=== PATIENT | female | born 1940 | race Caucasian/White ===

== ENCOUNTER 2017-01-04 12:52 | Inpatient (IN) | payer MEDICARE, OTHER ==
[2017-01-04] MEDS ORDERED: Levalbuterol 1.25 MG/3 ML Inhal Soln UD IH STA ×2 (13:34)
[2017-01-04] MEDS ORDERED: guaiFENesin 200 mg/10 ml Syrup UD PO STA (13:34)
[2017-01-04] MEDS ORDERED: Ipratropium 0.02% Inhal Soln (0.5 mg/2.5 ml) UD IH STA ×2 (13:34)
--- NOTE | 2017-01-04 14:27 | ED PDOC ---
Arrival/HPI - General Chief Complaint: Cough, Cold, Congestion Time Seen by Provider: 01/04/17 13:27 Historian: Patient - History of Present Illness Narrative History of Present Illness (Text): 01/04/17 13:30 A 76 year old female, whose past medial history includes hypertension, high cholesterol and COPD, presents to the emergency department complaining of a sore throat, ear pain that developed about 2 weeks ago. But now she also has a runny nose, cough, wheezing, and worsening shortness of breath upon walking or lying down. Patient denies any abdominal pain, headache, fevers or any other complaints at this time. PMD: Dr. Chris Time/Duration: Other (2 weeks) Symptom Onset: Sudden Symptom Course: Unchanged Activities at Onset: Rest Modifying Factors (Text): none Context: Home Associated Symptoms (Text): runny nose, cough, shortness of breath Past Medical History - Provider Review Nursing Documentation Reviewed: Yes - Infectious Disease Hx of Infectious Diseases: None - Reproductive Menopause: Yes - Cardiac Hx Hypertension: Yes - Pulmonary Hx Respiratory Disorders: No Hx Chronic Obstructive Pulmonary Disease (COPD): Yes - Psychiatric Hx Substance Use: No - Surgical History Hx Appendectomy: Yes - Anesthesia Hx Anesthesia: Yes Hx Anesthesia Reactions: No Hx Malignant Hyperthermia: No Family/Social History - Physician Review Nursing Documentation Reviewed: Yes Family/Social History: No Known Family HX Smoking Status: Former Smoker Hx Alcohol Use: No Hx Substance Use: No Allergies/Home Meds Allergies/Adverse Reactions: Allergies pen Allergy (Uncoded 01/04/17 13:09) SWELLING Home Medications: Home Meds Medication Instructions Recorded Confirmed Ipratropium/Albuterol Sulfate 1 spry IN TID PRN 08/05/15 01/04/17 [Combivent Respimat] hydroCHLOROthiazide [Hydrodiuril] 25 mg PO DAILY 08/05/15 01/04/17 Neomycin Sulf/Polymyxin B Sulf 1 drop DAILY 01/04/17 01/04/17 [Neomy-Polymyxin B 40 mg/ml Vl] Pravastatin Sodium [Pravachol] 20 mg PO DAILY 01/04/17 01/04/17 Promethazine [Phenergan Oral Syrup] 1 tsp PO Q8 01/04/17 01/04/17 Umeclidinium Haskell [Incruse 1 in PO DAILY 01/04/17 01/04/17 Ellipta] Review of Systems - Physician Review All systems were reviewed & negative as marked: Yes - Review of Systems ENT: Sore Throat, Other (ear pain) Respiratory: SOB, Cough Gastrointestinal: absent: Abdominal Pain Neurological: absent: Headache Physical Exam Vital Signs Reviewed: Yes Vital Signs Temp Pulse Resp BP Pulse Ox 01/04/17 16:54 100 H 20 142/98 H 95 01/04/17 13:05 98.3 F 99 H 20 121/76 94 L Temperature: Afebrile Blood Pressure: Normal Pulse: Regular Respiratory Rate: Normal Appearance: Positive for: Well-Appearing, Non-Toxic, Comfortable Pain Distress: None Mental Status: Positive for: Alert and Oriented X 3 - Systems Exam Head: Present: Atraumatic, Normocephalic Pupils: Present: PERRL Conjunctiva: Present: Normal Mouth: Present: Moist Mucous Membranes Pharnyx: Present: Normal. No: ERYTHEMA, EXUDATE Neck: Present: Normal Range of Motion Respiratory/Chest: Present: Wheezes (mild), Decreased Breath Sounds Cardiovascular: Present: Regular Rate and Rhythm, Normal S1, S2. No: Murmurs Abdomen: Present: Normal Bowel Sounds. No: Tenderness, Distention, Peritoneal Signs Back: Present: Normal Inspection Upper Extremity: Present: Normal Inspection. No: Cyanosis, Edema Lower Extremity: Present: Normal Inspection. No: Edema Neurological: Present: GCS=15, CN II-XII Intact, Speech Normal Skin: Present: Warm, Dry, Normal Color. No: Rashes Psychiatric: Present: Alert, Oriented x 3, Normal Insight, Normal Concentration Medical Decision Making ED Course and Treatment: 01/04/17 14:29 Impression: 76 yo. female with a history of COPD with URI symptoms and now COPD exacerbation. Tachypnea with wheezing and decreased BS on exam.Pat Differential Diagnosis included but are not limited to: COPD exacerbation vs pneumonia Plan: -- EKG -- chest xray -- Urinalysis -- Labs -- Reassess and disposition Prior Visits: Notes and results from previous visits were reviewed. Patient was reported to emergency department on 08/05/15 complaining of cough and throat pain. Patient was advised to follow up with PMD and appraiser [facility]. Patient was discharged with Levaquin and Tessalon. Progress Notes: EKG: Ordered, reviewed, and independently interpreted the EKG. Rate : 95 BPM Rhythm : NSR Interpretation : QTC 482, normal axis, no ST elevation, nonspecific ST/T changes Comparison : No previous EKG for comparison. 01/04/17 17:55 Patient given steroids and nebs in the ED with mild improvement; she continues to remain tachypneic in the ED; will need additional treatment end evaluation. CTA also showing no PE but mediastinal adenopathy that will need further eval. Case discussed with Dr. Ramírez, covering on-call physician, Dr. Posada for further evaluation and treatment on his service. - Lab Interpretations Lab Results: 01/04/17 14:18 01/04/17 14:18 Lab Results 01/04/17 15:30: Urine Color Yellow, Urine Appearance Clear, Urine pH 7.0, Ur Specific Alexander <= 1.005, Urine Protein Negative, Urine Glucose (UA) Negative, Urine Ketones Negative, Urine Blood Trace-intact H, Urine Nitrate Negative, Urine Bilirubin Negative, Urine Urobilinogen 0.2, Ur Leukocyte Esterase Trace H , Urine RBC 0 - 2, Urine WBC 0 - 2 01/04/17 14:18: Sodium 136, Potassium 2.7 L* D, Chloride 97 L, Carbon Dioxide 29 , Anion Gap 13, BUN 9, Creatinine 0.8, Est GFR ( Amer) > 60, Est GFR (Non -Af Amer) > 60, Random Glucose 113 H, Calcium 9.6, Magnesium 2.0, Total Bilirubin 0.5, AST 32, ALT 22, Alkaline Phosphatase 61, Lactate Dehydrogenase 460, Total Creatine Kinase 149, Troponin I < 0.01, NT-Pro-B Natriuret Pep 42.8, Total Protein 8.4 H, Albumin 3.8, Globulin 4.6, Albumin/Globulin Ratio 0.8 L, Lipase 41 01/04/17 14:18: PT 11.4, INR 1.06, APTT 28.2, D-Dimer, Quantitative 0.70 H 01/04/17 14:18: WBC 8.1 D, RBC 4.91, Hgb 15.4, Hct 42.9, MCV 87.4, MCH 31.4, MCHC 35.9, RDW 13.1, Plt Count 226, MPV 9.0, Gran % 41.1 L, Lymph % (Auto) 41.1 H, [place] % (Auto) 9.7 H, Eos % (Auto) 7.5 H, Baso % (Auto) 0.6, Gran # 3.32, Lymph # 3.3, [place] # 0.8 H, Eos # 0.6, Baso # 0.05 I have reviewed the lab results: Yes - RAD Interpretation Radiology Orders: 01/04/17 13:33 CHEST PORTABLE [RAD] Stat 01/04/17 14:55 ANGIO CHEST PE PROTOCOL [CT] Stat - EKG Interpretation Interpreted by ED Physician: Yes Type: 12 lead EKG - Medication Orders Current Medication Orders: Discontinued Medications Guaifenesin (Robitussin) 400 mg PO ONCE STA Stop: 01/04/17 13:35 Last Admin: 01/04/17 14:33 Dose: 400 mg Potassium Chloride (Potassium Chloride 10 Meq/100 Ml) 10 meq in 100 mls @ 100 mls/hr IVPB Q2H STA Stop: 01/04/17 15:53 Last Admin: 01/04/17 15:47 Dose: 100 mls/hr Iohexol (Omnipaque 350 100 Ml) Confirm Administered Dose 350 mg .ROUTE .STK-MED ONE Stop: 01/04/17 16:23 Ipratropium Haskell (Atrovent) 0.5 mg IH STAT STA Stop: 01/04/17 13:35 Last Admin: 01/04/17 14:33 Dose: 0.5 mg Ipratropium [place] (Atrovent) 0.5 mg IH STAT STA Stop: 01/04/17 13:35 Last Admin: 01/04/17 14:33 Dose: 0.5 mg Levalbuterol HCl (Xopenex) 1.25 mg IH STAT STA Stop: 01/04/17 13:35 Last Admin: 01/04/17 14:34 Dose: 1.25 mg Levalbuterol HCl (Xopenex) 1.25 mg IH STAT STA Stop: 01/04/17 13:35 Last Admin: 01/04/17 14:34 Dose: 1.25 mg Methylprednisolone (Solu-Medrol) 125 mg IVP STAT STA Stop: 01/04/17 13:34 Last Admin: 01/04/17 14:33 Dose: 125 mg Potassium Chloride (K-Dur 20 Meq Er Tab) 40 meq PO STAT STA Stop: 01/04/17 14:55 Last Admin: 01/04/17 15:46 Dose: 40 meq - Scribe Statement The provider has reviewed the documentation as recorded by the Vyibronda Cowan All medical record entries made by the Gokul were at my direction and personally dictated by me. I have reviewed the chart and agree that the record accurately reflects my personal performance of the history, physical exam, medical decision making, and the department course for this patient. I have also personally directed, reviewed, and agree with the discharge instructions and disposition. Disposition/Present on Arrival - Present on Arrival Any Indicators Present on Arrival: No History of DVT/PE: No History of Uncontrolled Diabetes: No Urinary Catheter: No History of Decub. Ulcer: No History Surgical Site Infection Following: None - Disposition Have Diagnosis and Disposition been Completed?: Yes Diagnosis: COPD exacerbation, Mediastinal adenopathy Disposition: HOSPITALIZED Disposition Time: 17:45 Patient Plan: Observation Condition: FAIR
[2017-01-04 14:35] LABS: ADD MANUAL DIFF? NO
[2017-01-04 14:45] LABS: BASO # 0.05 K/mm3 (0.0-2.0); BASO % 0.6 % (0.0-3.0); EOS # 0.6 (0.0-0.7); EOS % 7.5 % (1.5-5.0); GRAN # 3.32 (1.4-6.5); GRAN % 41.1 % (50.0-68.0); HEMATOCRIT 42.9 % (36.0-48.0); LYMPH # 3.3 (1.2-3.4); LYMPH % 41.1 % (22.0-35.0); MEAN CELL VOLUME 87.4 fL (80.0-105.0); MEAN CORPUSCULAR HEMOGLOBIN 31.4 pg (25.0-35.0); MEAN CORPUSCULAR HGB CONC 35.9 g/dl (31.0-37.0); MONO # 0.8 (0.1-0.6); MONO % 9.7 % (1.0-6.0); PLATELET COUNT 226 10^3/uL (120.0-450.0); RED CELL DISTRIBUTION WIDTH 13.1 % (11.5-14.5); WHITE BLOOD COUNT 8.1 10^3/ul (4.5-11.0)
[2017-01-04 14:49] LABS: ALB/GLOB RATIO 0.8 (1.1-1.8); ALKALINE PHOSPHATASE 61 U/L (38-133); ALT/SGPT 22 U/L (7-56); AST/SGOT 32 U/L (15-39); BILIRUBIN,TOTAL 0.5 mg/dL (0.2-1.3); BLOOD UREA NITROGEN 9 mg/dL (7-21); CALCIUM 9.6 mg/dL (8.4-10.5); CARBON DIOXIDE 29 mmol/L (21-33); CHLORIDE 97 mmol/L (98-107); GFR AFRICAN-AMERICAN > 60; GLUCOSE,RANDOM 113 mg/dL (70-110); LIPASE 41 U/L (23-300); SODIUM 136 mmol/L (132-148); TOTAL PROTEIN 8.4 g/dL (5.8-8.3)
[2017-01-04 14:51] LABS: POTASSIUM 2.7 mmol/L (3.6-5.0)
[2017-01-04 14:53] LABS: INR 1.06 (0.93-1.08); PARTIAL THROMBOPLASTIN TIME 28.2 Seconds (23.7-30.8)
[2017-01-04 14:54] LABS: D DIMER 0.7 mg/L FEU (0-0.50)
[2017-01-04] MEDS ORDERED: Potassium Chloride 20 mEq ER Tab PO STA (14:54)
[2017-01-04 15:02] LABS: TROPONIN I < 0.01 ng/mL
--- NOTE | 2017-01-04 15:17 | CARD ---
APPROVED REPORT EKG Measurement Heart [id number] <Conclusion> Normal sinus rhythm Right atrial enlargement Nonspecific ST and T wave abnormality Prolonged QT Abnormal ECG
[2017-01-04 16:00] LABS: URINE BILIRUBIN NEGATIVE (NEGATIVE); URINE BLOOD TRACE-INTACT (NEGATIVE); URINE GLUCOSE (UA) NEGATIVE (NEGATIVE); URINE KETONE NEGATIVE (NEGATIVE); URINE LEUKOCYTE ESTERASE TRACE Leu/uL (NEGATIVE); URINE PROTEIN NEGATIVE mg/dL (<30 mg/dL); URINE UROBILINOGEN 0.2 E.U./dL (<1 E.U./dL)
[2017-01-04 16:02] LABS: URINE APPEARANCE CLEAR (CLEAR); URINE COLOR YELLOW (YELLOW)
[2017-01-04 16:14] LABS: URINE RBC 0 - 2 /hpf (0-2); URINE WBC 0 - 2 /hpf (0-6)
[2017-01-04] MEDS ORDERED: Iohexol 350 MG/100 ML VIAL ONE (16:22)
--- NOTE | 2017-01-04 17:30 | CT ---
PROCEDURE: CT Chest with contrast (Pulmonary Angiogram) HISTORY: sob; r/o PE COMPARISON: None available. TECHNIQUE: Axial computed tomography images were obtained of the chest in the pulmonary arterial phase of enhancement. Coronal and sagittal reformatted images were created and reviewed. Intravenous contrast dose: 100 cc Omnipaque 350 contrast material. [place] Radiation dose: Total exam DLP = 169.29 mGy-cm. This CT exam was performed using one or more of the following dose reduction techniques: Automated exposure control, adjustment of the mA and/or kV according to patient size, and/or use of iterative reconstruction technique. FINDINGS: PULMONARY ARTERIES: No pulmonary embolism. Pulmonary trunk measures approximately 3.06 cm. Rule out underlying mild pulmonary arterial hypertension. AORTA: No evidence of aneurysmal dilatation of the thoracic aorta. Ascending thoracic aorta measures approximately 32.8 cm and descending thoracic aorta measures approximately 2.36 cm. Atherosclerotic plaque changes seen along the descending thoracic aorta. . LUNGS: Centrilobular emphysematous changes on heart is seen with upper lobe predominance with coarsened reticular opacities. . There also appears to be somewhat coarsened reticular opacities in the lower lung augustine suggesting honeycombing/ fibrosis. No focal consolidation. PLEURAL SPACES: Unremarkable. No effusion or pneuomothorax. HEART: Unremarkable. No cardiomegaly. No significant pericardial effusion. LYMPH NODES: Enlarged mediastinal lymph nodes are present, largest in the sub carinal region measuring approximately 17.1 mm and 11.3 mm. Small 12.2 mm left hilar lymph node is present. .. Note that it is unclear whether adenopathy from the sub carinal region extends posteriorly and inferiorly abutting the esophagus versus the possibility of esophageal wall thickening an underlying esophageal invasive lesion such as esophageal carcinoma. Consider followup and esophageal endoscopy. BONES, CHEST WALL: Bony structures intact. Mild multilevel degenerative spondylosis of the thoracic spine with mild to moderate dextroscoliosis mid to lower thoracic region. OTHER FINDINGS: There is enlarged somewhat heterogeneous thyroid gland right lobe larger than left. . Small calcifications also present right lobe. IMPRESSION: No evidence of acute central pulmonary embolus. Prominent pulmonary trunk ; rule out underlying mild pulmonary arterial hypertension. . There is also a prominent IVC Mediastinal adenopathy as above. Note that it is unclear whether adenopathy from the sub carinal region extends posteriorly and inferiorly abutting the esophagus versus the possibility of esophageal wall thickening an underlying esophageal invasive lesion such as esophageal carcinoma. Consider followup and esophageal endoscopy. Centrilobular emphysematous changes with what appears represent early honeycombing/fibrosis. No focal consolidation. Enlarged somewhat heterogeneous thyroid gland with thyroid calcifications right lobe. Thyroid ultrasound followup recommended. Atherosclerotic changes predominately involving the descending thoracic aorta of the
--- NOTE | 2017-01-04 17:37 | RAD ---
HISTORY: sob COMPARISON: Chest radiograph dated 06/22. Correlation also made with CTA chest obtained at 1627 hours FINDINGS: LUNGS: Centrilobular emphysema with upper lobe predominance. . Mild biapical pleural thickening . Interstitial reticular changes in the lower lobes consistent with early honeycombing/fibrosis PLEURA: As above. No pneumothorax apparent. CARDIOVASCULAR: Normal. OSSEOUS STRUCTURES: No significant abnormalities. VISUALIZED UPPER ABDOMEN: Normal. OTHER FINDINGS: None. IMPRESSION: Centrilobular emphysema with upper lobe predominance. . Mild biapical pleural thickening . Interstitial reticular changes in the lower lobes consistent with early honeycombing/fibrosis
[2017-01-05] MEDS: guaiFENesin 200 mg/10 ml Syrup UD PO SCH ×5 (00:13→23:27)
[2017-01-05] MEDS: Promethazine 6.25 MG/5 ML CUP PO SCH ×4 (00:19→21:56)
[2017-01-05] MEDS: Albuterol-Ipratrop 3 mg / 0.5 (3 ml) UD IH PRN (08:10)
[2017-01-05 12:51] VITALS: BMI 21.9
[2017-01-05 14:18] LABS: ADD MANUAL DIFF? NO
[2017-01-05 14:24] LABS: BASO # 0.03 K/mm3 (0.0-2.0); BASO % 0.2 % (0.0-3.0); EOS % 0.1 % (1.5-5.0); GRAN # 12.62 (1.4-6.5); HEMATOCRIT 40.1 % (36.0-48.0); LYMPH % 18.1 % (22.0-35.0); MEAN CELL VOLUME 88.7 fL (80.0-105.0); MEAN CORPUSCULAR HEMOGLOBIN 31.4 pg (25.0-35.0); MEAN CORPUSCULAR HGB CONC 35.4 g/dl (31.0-37.0); MEAN PLATELET VOLUME 9.2 fl (7.0-11.0); MONO # 0.9 (0.1-0.6); MONO % 5.6 % (1.0-6.0); PLATELET COUNT 241 10^3/uL (120.0-450.0); RED CELL DISTRIBUTION WIDTH 13.3 % (11.5-14.5); WHITE BLOOD COUNT 16.6 10^3/ul (4.5-11.0)
[2017-01-05] MEDS: MethylPREDNISolone 40 mg Vial IVP SCH ×2 (14:34→21:49)
[2017-01-05 14:44] LABS: ALB/GLOB RATIO 0.9 (1.1-1.8); ALKALINE PHOSPHATASE 60 U/L (38-133); ALT/SGPT 23 U/L (7-56); AST/SGOT 29 U/L (15-39); BILIRUBIN,TOTAL 0.5 mg/dL (0.2-1.3); BLOOD UREA NITROGEN 11 mg/dL (7-21); CALCIUM 9.4 mg/dL (8.4-10.5); CARBON DIOXIDE 29 mmol/L (21-33); CHLORIDE 102 mmol/L (98-107); GFR AFRICAN-AMERICAN > 60; GLUCOSE,RANDOM 149 mg/dL (70-110); POTASSIUM 3.1 mmol/L (3.6-5.0); SODIUM 139 mmol/L (132-148)
[2017-01-06] MEDS: MethylPREDNISolone 40 mg Vial IVP SCH ×3 (05:23→21:13)
[2017-01-06] MEDS: Promethazine 6.25 MG/5 ML CUP PO SCH ×3 (05:23→21:13)
[2017-01-06] MEDS: Albuterol-Ipratrop 3 mg / 0.5 (3 ml) UD IH PRN ×2 (06:00→08:20)
[2017-01-06] MEDS ORDERED: Albuterol-Ipratrop 3 mg / 0.5 (3 ml) UD IH PRN (06:28)
[2017-01-06 06:32] LABS: ADD MANUAL DIFF? NO
[2017-01-06 06:44] LABS: MEAN CELL VOLUME 88.8 fL (80.0-105.0); MEAN CORPUSCULAR HEMOGLOBIN 31.1 pg (25.0-35.0); MEAN PLATELET VOLUME 9.1 fl (7.0-11.0); RED CELL DISTRIBUTION WIDTH 13.6 % (11.5-14.5); WHITE BLOOD COUNT 9.7 10^3/ul (4.5-11.0)
[2017-01-06 07:10] LABS: ALB/GLOB RATIO 0.9 (1.1-1.8); ALKALINE PHOSPHATASE 55 U/L (38-133); ALT/SGPT 29 U/L (7-56); AST/SGOT 27 U/L (15-39); BILIRUBIN,TOTAL 0.3 mg/dL (0.2-1.3); BLOOD UREA NITROGEN 15 mg/dL (7-21); CALCIUM 8.3 mg/dL (8.4-10.5); CARBON DIOXIDE 24 mmol/L (21-33); CHLORIDE 106 mmol/L (95-110); GFR AFRICAN-AMERICAN > 60; GLUCOSE,RANDOM 165 mg/dL (70-110); POTASSIUM 3.7 mmol/L (3.6-5.0); SODIUM 137 mmol/L (132-148); TOTAL PROTEIN 7.2 g/dL (5.8-8.3)
[2017-01-06 07:13] LABS: BASO # 0.01 K/mm3 (0.0-2.0); BASO % 0.1 % (0.0-3.0); GRAN % 84.3 % (50.0-68.0); HEMATOCRIT 38.7 % (36.0-48.0); LYMPH # 1.4 (1.2-3.4); LYMPH % 13.9 % (22.0-35.0); MEAN CORPUSCULAR HEMOGLOBIN 30.3 pg (25.0-35.0); MEAN CORPUSCULAR HGB CONC 34.1 g/dl (31.0-37.0); MEAN PLATELET VOLUME 9.1 fl (7.0-11.0); MONO # 0.2 (0.1-0.6); MONO % 1.7 % (1.0-6.0); PLATELET COUNT 232 10^3/uL (120.0-450.0); RED CELL DISTRIBUTION WIDTH 13.5 % (11.5-14.5); WHITE BLOOD COUNT 10.3 10^3/ul (4.5-11.0)
--- NOTE | 2017-01-06 07:29 | CON ---
DATE: 01/06/2017 REASON FOR CONSULTATION: Chronic obstructive pulmonary disease. REFERRING PHYSICIAN: Dr. Ramírez. HISTORY OF PRESENT ILLNESS: The patient is a 76-year-old female with past medical history significant for chronic obstructive pulmonary disease, positive extensive smoking history -- still smokes, hypertension, hyperlipidemia, who presents to [facility] with worsening shortness of breath at rest, dyspnea on exertion, cough, and minimal sputum production for the past week. There is no history of chest pain, coughing up of blood, or chest pain -- made worse with deep respirations. There is no history of temperatures, chills or infectious exposure. There is no history of night sweats, weight loss or appetite change prior to the above events. No history of leg or calf pains. No history of syncope or diaphoresis. No history of recent travel or trauma. REVIEW OF SYSTEMS: The patient does complain of a runny,stuffy nose over the past week. She also states that her ears are "clogged." No nausea, vomiting or diarrhea. No acute urinary symptoms. No new neurological or musculoskeletal complaints. Rest of review of systems is negative. ALLERGIES: PENICILLIN. SOCIAL HISTORY: Positive for extensive tobacco usage -- still smokes, no alcohol. FAMILY HISTORY: No inheritable diseases. HOME MEDICATIONS: Include Pravachol, Phenergan, Incruse, Combivent hydrochlorothiazide. PHYSICAL EXAMINATION: GENERAL: She is not short of breath at rest. She is not using accessory muscles for breathing. VITAL SIGNS: Temperature is 98.0, pulse 86, respirations 18/20, blood pressure 123/74. Oxygen saturation on nasal cannula is 96-100%. HEENT: Normocephalic, atraumatic. NECK: No JVD. CARDIOVASCULAR: Systolic ejection murmur at the lower left sternal border. No S3 gallop. LUNGS: Decreased breath sounds at the bases. Minimal rhonchi. Minimal wheezing. EXTREMITIES: Mild edema. No cyanosis, no clubbing. Calves are nontender to palpation. GASTROINTESTINAL: Abdomen is soft, nontender, nondistended. Bowel sounds are positive. SKIN: No acute rash. NEUROLOGIC: Limited at the present time. PERTINENT LABORATORY DATA: Chest x-ray was done and reviewed. There is centrilobular emphysema seen. There is also a mild increase in the interstitial changes. These changes are NOT new and have been seen on multiple previous x-rays. CT scan of the chest was also done. Again, centrilobular emphysema is noted. There also appears to be some chronic mild interstitial changes. There are also mildly enlarged mediastinal and hilar lymph nodes present. There is no evidence of pulmonary mass or consolidation. There is no pulmonary embolism. CBC: White count 16.6, hemoglobin 14.2, hematocrit 40.1, platelets of 241. Initial white count -- 8.1. Complete metabolic profile: Potassium 3.1, glucose 149. Rest of the metabolic profile is within normal limits. IMPRESSION: 1. Acute bronchitis. 2. Chronic obstructive pulmonary disease. 3. Abnormal CT scan. 4. Hypertension. PLAN: The patient presents to [facility] with a 1-week history of worsening pulmonary symptoms. I did review the chest x-ray as above. There are chronic changes noted. I did compare the latest film to previous films. I have also reviewed the CT scan of the chest. There is no pulmonary embolism seen. There, again, are chronic mild interstitial changes present. There is no evidence of mass or acute consolidation. There are mildly enlarged lymph nodes in the hilar and mediastinal regions--AGE UNDETERMINED. I did discuss the CT scan findings with the patient at length. The patient is followed closely by a survey technologist -- Dr. Osborne -- in [place]. Upon discharge, I would recommend proceeding with a PET scan -- as an outpatient. On physical exam, the patient is in mild to moderate bronchospasm. I will decrease the intravenous steroids this morning. I will also place the patient on scheduled nebulizer treatments, as well as add oral antibiotic therapy (given her age and diagnoses). The patient does feel better this morning -- compared to previous days. She is clinically improved. I will discuss the above with Dr. Posada this morning. Thank you very much for this pulmonary consultation. Shailesh Calles MD cc: [id number] TT: 01/06/2017 07:29:13 Confirmation # [id number] Dictation # [id number] jn LENA
[2017-01-06] MEDS: Albuterol-Ipratrop 3 mg / 0.5 (3 ml) UD IH SCH ×3 (08:20→20:04)
[2017-01-06] MEDS: Budesonide 0.5 mg/2 ml Inhal Susp UD IH SCH ×2 (08:31→20:04)
--- NOTE | 2017-01-06 08:35 | HP ---
The patient is a 76-year-old female with a known past medical history of hypertension and hypercholes terolemia, as well as COPD who comes in today with a 2-week history of increased shortness of breath as well as cough, sore throat, and nausea and vomiting, but no shortness of breath, no chest pain, wi th mild wheezing. PAST MEDICAL HISTORY: Includes COPD, hypertension, elevated lipids. SURGICAL HISTORY: Non-significant at this point. FAMILY MEDICAL HISTORY: Noncontributory. SOCIAL HISTORY: No smoking, no drinking, no drug use. MEDICAL HISTORY: See NOV. REVIEW OF SYSTEMS: HEENT: Positive for cough. Positive for sore throat. CARDIOVASCULAR: Unremarkable. LUNGS: Positive for shortness of breath, as well as cough with mild sputum production. ABDOMEN: Unremarkable. EXTREMITIES: Unremarkable. VITAL SIGNS: Blood pressure is currently 122/78, pulse rate of 104. Temperature is 99.8. O2 satura tion is 95 on room air. HEENT: Normocephalic, atraumatic. [place] conjunctivae, nonicteric sclerae. NECK: No JVD, no thyromegaly. CARDIOVASCULAR: Regular rate and rhythm. S1, S2 appreciated. No S3 noted. LUNGS: Bilateral air entry is positive. Positive scattered rhonchi diffusely with mild wheezing. ABDOMEN: Nondistended, nontender. Positive bowel sounds. EXTREMITIES: Peripheral pulse with no pitting edema. LABORATORY DATA: WBCs of 8.1, hemoglobin of 15.4, hematocrit of 42.9, platelets of 226. D-dimer is 0.7. Chemistry is within normal limits except for potassium of 2.7, which is currently being replace d at this point. She did have a CAT scan done. CAT scan was essentially negative for any acute central pulmonary embo lism or adenopathy. There is some emphysema that is seen. ASSESSMENT: 1. Chronic obstructive pulmonary disease exacerbation. 2. Hypertension. 3. Elevated lipids. 4. Hypokalemia. PLAN: So plan at this time - we will replace the potassium at this point. We will give her cough me dication, as well as Solu-Medrol, as well as breathing treatments, and we will follow the patient debra y closely. We will also get a consult with Dr. Calles and follow. Shorty Ramírez MD cc: [id number] TT: 01/05/2017 10:56:08 jn
--- NOTE | 2017-01-06 08:40 | CP.PCM.CON ---
<Otto Madrid - Last Filed: 01/06/17 11:57> History of Present Illness - History of Present Illness History of Present Illness: PGY4 GI Fellow Consult Note Patient is a 76yo female with PMHx significant for COPD, HTN, dyslipidemia who presents with complaints of dyspnea, sore throat and ear pain. Ten days prior to admission, patient developed chest congestion, cough and B/L ear pain. She was seen by her PCP who prescribed PO and otic gtt antibiotic therapy for presumed respiratory infection/otitis. The patient also used prescription cough suppressant medication (promethazine/DM) which helped improved symptoms modestly. As one week passed, she remained dyspneic on exertion which progressed to dyspnea at rest prompting her to come to the ED for further evaluation. A CTA chest performed in the ED to rule out PE was performed and revealed mediastinal adenopathy, irregularly enlarged thryoid gland and distal esophageal wall thickening. Since admission she has been treated for acute bronchitis with IV solumedrol, nebulizer therapy and IV antibiotics. Presently, she admits to improvement in overall symptoms. Does admit to occasional hemoptysis, SOB but otherwise denies any nausea, vomiting, dyspepsia, dysphagia , odynophagia, abdominal pain. PMHx: See HPI PSHx: Appendectomy FHx: Discussed with patient and she denies any significant family history Social: 1/2ppd smoker for 50+ years, denies EtOH or illicit drug use Endo: No prior endoscopic evaluation Review of Systems - Constitutional Constitutional: absent: Anorexia, Chills, Fever - EENT Eyes: absent: Change in Vision Ears: absent: Ear Pain Nose/Mouth/Throat: absent: Sore Throat - Cardiovascular Cardiovascular: absent: Chest Pain, Edema, Palpitations - Respiratory Respiratory: Cough, Dyspnea, Hemoptysis - Gastrointestinal Gastrointestinal: absent: Abdominal Pain, Bloating, Constipation, Cramping, Diarrhea, Dyspepsia, Dysphagia, Heartburn, Hematemesis, Hematochezia, Loose Stools, Melena, Nausea, Odynophagia, Vomiting - Genitourinary Genitourinary: absent: Dysuria, Urinary Frequency, Urinary Urgency - Musculoskeletal Musculoskeletal: absent: Back Pain, Neck Pain - Integumentary Integumentary: absent: New Lesions, Rash - Neurological Neurological: absent: Dizziness, Numbness, Focal Weakness - Psychiatric Psychiatric: absent: Anxiety, Depression - Endocrine Endocrine: absent: Polydipsia, Polyphagia, Polyuria - Hematologic/Lymphatic Hematologic: absent: Easy Bleeding, Easy Bruising, Lymphadenopathy Past Patient History - Infectious Disease Hx of Infectious Diseases: None - Past Social History Smoking Status: Never Smoked - CARDIAC Hx Hypertension: Yes - PULMONARY Hx Respiratory Disorders: No Hx Chronic Obstructive Pulmonary Disease (COPD): Yes - MUSCULOSKELETAL/RHEUMATOLOGICAL Hx Falls: No - PSYCHIATRIC Hx Substance Use: No - SURGICAL HISTORY Hx Appendectomy: Yes - ANESTHESIA Hx Anesthesia: Yes Hx Anesthesia Reactions: No Hx Malignant Hyperthermia: No Meds Allergies/Adverse Reactions: Allergies Allergy/AdvReac Type Severity Reaction Status Date / Time pen Allergy SWELLING Uncoded 01/04/17 13:09 - Medications Medications: Current Medications Albuterol/Ipratropium (Duoneb 3 Mg/0.5 Mg (3 Ml) Ud) 3 ml IH [id number] [facility] Last Admin: 01/06/17 08:20 Dose: 3 ml Albuterol/Ipratropium (Duoneb 3 Mg/0.5 Mg (3 Ml) Ud) 3 ml IH Q2H PRN PRN Reason: Shortness of Breath Budesonide (Pulmicort Respules) 0.5 mg IH [id number] [facility] Last Admin: 01/06/17 08:31 Dose: 0.5 mg Guaifenesin (Robitussin) 400 mg PO Q6 [facility] Last Admin: 01/05/17 23:27 Dose: 400 mg Hydralazine HCl (Apresoline) 25 mg PO TID [facility] Last Admin: 01/05/17 18:20 Dose: 25 mg Levofloxacin (Levaquin) 500 mg PO ONCE ONE Stop: 01/06/17 10:01 Levofloxacin (Levaquin) 250 mg PO Q24H [facility] Methylprednisolone (Solu-Medrol) 40 mg IVP Q12 [facility] Pantoprazole Sodium (Protonix Inj) 40 mg IVP DAILY [facility] Promethazine HCl (Phenergan Syrup) 6.25 mg PO Q8 [facility] Last Admin: 01/06/17 05:23 Dose: 6.25 mg Physical Exam - Constitutional Appears: Non-toxic, No Acute Distress - Eye Exam Eye Exam: EOMI, PERRL - ENT Exam ENT Exam: Mucous Membranes Moist - Respiratory Exam Respiratory Exam: Decreased Breath Sounds, Rales. absent: Clear to Auscultation Bilateral, Rhonchi, Wheezes - Cardiovascular Exam Cardiovascular Exam: RRR, +S1, +S2 - GI/Abdominal Exam GI & Abdominal Exam: Normal Bowel Sounds, Soft. absent: Distended, Firm, Guarding, Organomegaly, Rigid, Tenderness - Extremities Exam Extremities exam: Positive for: normal inspection. Negative for: pedal edema - Neurological Exam Neurological exam: Alert, Oriented x3 - Psychiatric Exam Psychiatric exam: Normal Affect, Normal Mood - Skin Skin Exam: Dry, Warm Results - Vital Signs Recent Vital Signs: Last Vital Signs Temp 97.8 F 01/06/17 06:00 Pulse 90 01/06/17 08:33 Resp 20 01/06/17 06:00 BP 139/97 H 01/06/17 06:00 Pulse Ox 100 01/06/17 06:00 - Labs Result Diagrams: 01/06/17 06:00 01/06/17 06:00 Assessment & Plan - Assessment and Plan (Free Text) Assessment: Patient is a 76yo female with PMHx significant for COPD, HTN, dyslipidemia who presents with complaints of dyspnea, sore throat and ear pain. -Acute COPD exacerbation, improved -Acute bronchitis, improved -URI with B/L otitis, resolving -Abnormal CT chest findings - thyroid enlargement, esophageal abnormality and mediastinal adenopathy -HTN -Dyslipidemia Plan: -Tolerating diet without issue, no hx of dysphagia/dyspepsia -Optimize patient from pulmonary standpoint prior to endoscopic interventions -Would benefit from EGD possibly with EUS to further evaluation distal esophageal lesion/mediastinal adenopathy noted on CT; must rule out malignancy given extensive smoking history -Endoscopy tentatively planned for Friday -Appreciate pulmonology and endocrinology consultations -Patient has never had screening colonoscopy - would benefit from non-emergent outpatient screening on follow up - Date & Time Date: 01/06/17 Time: 08:00 <Kunal Moody - Last Filed: 01/06/17 13:35> Meds - Medications Medications: Current Medications Albuterol/Ipratropium (Duoneb 3 Mg/0.5 Mg (3 Ml) Ud) 3 ml IH [id number] [facility] Last Admin: 01/06/17 13:17 Dose: 3 ml Albuterol/Ipratropium (Duoneb 3 Mg/0.5 Mg (3 Ml) Ud) 3 ml IH Q2H PRN PRN Reason: Shortness of Breath Budesonide (Pulmicort Respules) 0.5 mg IH [id number] [facility] Last Admin: 01/06/17 08:31 Dose: 0.5 mg Guaifenesin (Robitussin) 400 mg PO Q6 [facility] Last Admin: 01/06/17 11:02 Dose: 400 mg Hydralazine HCl (Apresoline) 25 mg PO TID [facility] Last Admin: 01/06/17 09:19 Dose: 25 mg Levofloxacin (Levaquin) 250 mg PO Q24H [facility] Methylprednisolone (Solu-Medrol) 40 mg IVP Q12 [facility] Last Admin: 01/06/17 09:21 Dose: 40 mg Metoprolol Tartrate (Lopressor) 12.5 mg PO BID [facility] Last Admin: 01/06/17 11:02 Dose: 12.5 mg Pantoprazole Sodium (Protonix Inj) 40 mg IVP DAILY [facility] Last Admin: 01/06/17 09:21 Dose: 40 mg Promethazine HCl (Phenergan Syrup) 6.25 mg PO Q8 [facility] Last Admin: 01/06/17 05:23 Dose: 6.25 mg Results - Vital Signs Recent Vital Signs: Last Vital Signs Temp 97.8 F 01/06/17 06:00 Pulse 120 H 01/06/17 11:03 Resp 20 01/06/17 06:00 BP 166/82 H 01/06/17 11:03 Pulse Ox 100 01/06/17 06:00 - Labs Result Diagrams: 01/06/17 06:00 01/06/17 06:00 Labs: Laboratory Results - last 24 hr 01/05/17 01/05/17 01/06/17 14:17 14:17 06:00 WBC 16.6 H D 9.7 D RBC 4.52 4.28 Hgb 14.2 13.3 Hct 40.1 38.0 MCV 88.7 88.8 MCH 31.4 31.1 MCHC 35.4 35.0 RDW 13.3 13.6 Plt Count 241 232 MPV 9.2 9.1 Gran % 76.0 H Lymph % (Auto) 18.1 L Bullock % (Auto) 5.6 Eos % (Auto) 0.1 L Baso % (Auto) 0.2 Gran # 12.62 H Lymph # 3.0 Bullock # 0.9 H Eos # 0.0 Baso # 0.03 Sodium 139 Potassium 3.1 L Chloride 102 Carbon Dioxide 29 Anion Gap 11 BUN 11 Creatinine 0.8 Est GFR ( Amer) > 60 Est GFR (Non-Af Amer) > 60 Random Glucose 149 H Calcium 9.4 Total Bilirubin 0.5 AST 29 ALT 23 Alkaline Phosphatase 60 Total Protein 8.0 Albumin 3.7 Globulin 4.3 Albumin/Globulin Ratio 0.9 L 01/06/17 01/06/17 06:00 06:00 WBC 10.3 RBC 4.35 Hgb 13.2 Hct 38.7 MCV 89.0 MCH 30.3 MCHC 34.1 RDW 13.5 Plt Count 232 MPV 9.1 Gran % 84.3 H Lymph % (Auto) 13.9 L Bullock % (Auto) 1.7 Eos % (Auto) 0.0 L Baso % (Auto) 0.1 Gran # 8.70 H Lymph # 1.4 Bullock # 0.2 Eos # 0.0 Baso # 0.01 Sodium 137 Potassium 3.7 Chloride 106 Carbon Dioxide 24 Anion Gap 11 BUN 15 Creatinine 0.6 Est GFR ( Amer) > 60 Est GFR (Non-Af Amer) > 60 Random Glucose 165 H Calcium 8.3 L Total Bilirubin 0.3 AST 27 ALT 29 Alkaline Phosphatase 55 Total Protein 7.2 Albumin 3.3 Globulin 3.9 Albumin/Globulin Ratio 0.9 L Attending/Attestation - Attestation I have personally seen and examined this patient.: Yes I have fully participated in the care of the patient.: Yes I have reviewed all pertinent clinical information: Yes Notes (Text): 01/06/17 13:34 76 year old female with h/o emphysema, smoking a/w SOB, found to have abnormal CT of esophagus. 1. Abnormal CT scan of the GI tract, esophagus Plan: -asymptomatic -distal esophageal thickening along with mediastinal lymphadenopathy -recommend elective endoscopy -may be able to perform EUS to evaluate LN at the same time -tentatively plan for endoscopy friday -supportive care in the meantime -optimize respiratory status
--- NOTE | 2017-01-06 09:40 | HP ---
I came to see the patient this morning. She is still on observation. She was seen yesterday by Dr. Ramírez who covered me over the weekend . Pulmonary has seen her this a.m.. She is a 76-year-old female who developed about 2 weeks of sore throat, upper respiratory infections, ear pain, and was on outpatient antibiotics, failed outpatient antibiotics from her primary care, and now has got runny nose, cough , wheezing, worsening shortness of breath upon walking lying down. No abdominal pain, no headache or fever. Now she is here in the hospital getting IV Solu-Medrol. PAST MEDICAL HISTORY: She has history of hypertension, high cholesterol, COPD. This is a sudden change for her even being on antibiotics by her primary. She had a history of appendectomy. FAMILY HISTORY: She has Hypertension in the family. SOCIAL HISTORY: She is still a smoker at times. No alcohol, no drugs. ALLERGIES: PENICILLIN CAUSES AN ALLERGY. MEDICATIONS: She takes Combivent, HydroDIURIL, neomycin, polymyxin, Pravachol, Phenergan, Incruse. She has an ear ache, sore throat, runny nose, coughing, congestion, occasional wheeze, shortness of breath. No chest pain, no palpitations, no abdominal pain , no nausea, vomiting, constipation, or diarrhea. She can move all extremities. PHYSICAL EXAMINATION: VITAL SIGNS: She has a 98.3 temp. Pulse is 100. Respiratory rate is 20, 142/ 98 blood pressure, 95% O2 sat. HEENT: Head is atraumatic, normocephalic. GENERAL: She is alert and oriented x 3. She is on IV Solu-Medrol right now. So I am over the worst of her appearance when she came to the hospital when she was very short of breath. Throat is dry, mildly red. NECK: Supple. Extraocular muscles are intact. Pupils are equally reactive to light and accommodation. HEART: Regular rate. Normal S1, S2. LUNGS: Occasional wheeze improving. The decrease of shortness of breath is improving with the Solu-Medrol. She is breathing better, talking more. ABDOMEN: Soft, nontender, positive bowel sounds. No guarding, no rebound, no CVA tenderness. EXTREMITIES: Have no edema. NEUROLOGIC: GCS is 15. Cranial nerves II-XII are grossly intact. Speech is normal. SKIN: Warm and dry. Alert and oriented x 3. Normal insight. Normal concentration. LABORATORY DATA: She had multiple tests. She had a 16.6 white count, 13.2 hemoglobin, 38.7 hematocrit with 232 platelets. The white count is down to 10.3. INR is 1.06. The D-dimer was 0.7. She has a 137 sodium when she came in. The potassium was quite low. It was 2.7. She was given K-riders, and it was 3.1. It is up to 3.7 now. BUN is 15, creatinine 0.6. GFR is greater than 60. Sugar is . Calcium is 8.3. Total bili is 0.3. AST is 27. ALT is 29. Alk phos is 55, total protein 7.2, and urine is trace. She had a chest x-ray, which showed normal sinus rhythm, prolonged QT on the EKG , right atrial enlargement. 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 She had a CAT scan of the chest, which showed no evidence of acute central pulmonary embolus. There is mild pulmonary arterial hypertension. There is a prominent IVC, mediastinal adenopathy - could be esophageal invasive lesions such as esophageal carcinoma. I am going to consult GI. Enlarged thyroid gland with thyroid calcifications. I will consult endocrinology for evaluation. . She is being seen by pulmonary for her acute exacerbation of COPD, acute bronchitis. She is going to need to have a PET scan when she leaves the hospital. We will continue with IV Solu-Medrol, change her to an inpatient, which she should have been inpatient from the beginning. I am not sure what happened. Jose Posada DO cc: [id number] TT: 01/06/2017 09:39:26 jn MTDBill
[2017-01-06] MEDS ORDERED: levoFLOXacin 500 MG TAB PO ONE (10:00)
[2017-01-06] MEDS: guaiFENesin 200 mg/10 ml Syrup UD PO SCH ×3 (11:02→18:35)
--- NOTE | 2017-01-06 14:16 | CON ---
DATE: 01/06/2017 HISTORY OF PRESENT ILLNESS: The patient is a 76-year-old woman who presents with progressive dyspnea . PAST MEDICAL HISTORY: Notable for COPD. She has had multiple episodes of dyspnea in the past: Rito p in [facility] according to the patient, was negative for any significant cardiac di sease. She does suffer from hypertension and hypercholesterolemia. She denies chest pain. Negative diabetes mellitus. SOCIAL HISTORY: She is an active smoker. REVIEW OF SYSTEMS: A 14-point review of systems was reviewed. Positive dyspnea, positive cough, neg ative angina, negative edema in the lower extremities. PHYSICAL EXAMINATION: VITAL SIGNS: Blood pressure 124/71, heart rate is sinus tachycardia between 100 and 110. NECK: Negative JVD. LUNGS: No rales noted. HEART: Reveals S1, S2. EXTREMITIES: Without edema. EKG shows sinus tachycardia with no acute changes. LABORATORY DATA: Hemoglobin is 13.2. Troponin is negative x 1. The proBNP was 42. IMPRESSION: 1. Exacerbation of chronic obstructive pulmonary disease. 2. Sinus tachycardia secondary to the work of breathing. 3. No evidence for congestive heart failure. 4. No evidence for acute coronary syndrome. 5. Hypertension. 6. Hypercholesterolemia. Given these findings, we will obtain an echocardiogram to evaluate her LV function and to rule out pu lmonary hypertension. I have discussed with the patient about the need to stop smoking. Owen Morgan MD cc: [id number] TT: 01/06/2017 14:16:08 Confirmation # [id number] Dictation # [id number]
[2017-01-07] MEDS: guaiFENesin 200 mg/10 ml Syrup UD PO SCH ×4 (00:28→17:16)
[2017-01-07] MEDS: Albuterol-Ipratrop 3 mg / 0.5 (3 ml) UD IH SCH ×4 (02:40→19:24)
[2017-01-07] MEDS: Promethazine 6.25 MG/5 ML CUP PO SCH ×3 (06:36→21:33)
[2017-01-07 07:17] LABS: ALB/GLOB RATIO 0.8 (1.1-1.8); ALKALINE PHOSPHATASE 46 U/L (38-133); ALT/SGPT 24 U/L (7-56); AST/SGOT 22 U/L (15-39); BILIRUBIN,TOTAL 0.5 mg/dL (0.2-1.3); BLOOD UREA NITROGEN 17 mg/dL (7-21); CALCIUM 8.4 mg/dL (8.4-10.5); CARBON DIOXIDE 23 mmol/L (21-33); CHLORIDE 105 mmol/L (98-107); GFR AFRICAN-AMERICAN > 60; GLUCOSE,RANDOM 200 mg/dL (70-110); POTASSIUM 3.5 mmol/L (3.6-5.0); SODIUM 136 mmol/L (132-148)
[2017-01-07 07:29] LABS: T4 7.8 ug/dL (5.5-11.0)
[2017-01-07 07:42] LABS: THYROID STIMULATING HORMONE 0.13 mIU/mL (0.46-4.68)
--- NOTE | 2017-01-07 07:57 | PN ---
DATE: 01/07/2017 SUBJECTIVE: The patient appears very comfortable at rest. She is not short of breath. PHYSICAL EXAMINATION: VITAL SIGNS: Temperature is 98.0, pulse 90, respirations 18, blood pressure 128 /82. Oxygen saturation on nasal cannula is 100%. Oxygen saturation on room air -- 93%. HEENT: Normocephalic, atraumatic. No JVD. CARDIOVASCULAR: Systolic ejection murmur at the lower left sternal border. No S3 gallop. LUNGS: Decreased breath sounds at the bases. Less rhonchi. No wheezing this morning. EXTREMITIES: Mild edema. No cyanosis, no clubbing. Calves are nontender to palpation. GASTROINTESTINAL: Abdomen is soft, nontender, nondistended. Bowel sounds are positive. SKIN: No acute rash. NEUROLOGIC: Limited at the present time. IMPRESSION: 1. Acute bronchitis. 2. Chronic obstructive pulmonary disease. 3. Abnormal CAT scan. 4. Hypertension. PLAN: The patient appears very comfortable this morning. She is not short of breath at rest. She states to feeling much better overall. On physical exam, her bronchospasm is resolving. In addition, there is no significant alveolar arterial gradient. I will continue with the current nebulizer treatments and decrease the intravenous steroids this morning. The patient remains on antibiotic therapy. There are no temperatures noted. There is no leukocytosis. Again, I would recommend proceeding with a PET scan -- as an outpatient -- to evaluate the mild to moderate lymphadenopathy. I did discuss the case and plan with Dr. Posada yesterday. I will also discuss the case with him again this morning. Clinical status of the patient is certainly improved - compared to the initial presentation. Shailesh Calles MD cc: [id number] TT: 01/07/2017 07:56:51 Confirmation # [id number] Dictation # [id number] william PAREDES
[2017-01-07] MEDS: Budesonide 0.5 mg/2 ml Inhal Susp UD IH SCH ×2 (08:06→19:24)
--- NOTE | 2017-01-07 08:09 | CON ---
DATE: 01/06/2017 ROOM: ____ This is a 76-year-old female who is admitted with acute exacerbation of COPD and started on IV steroi d therapy and underwent a CAT scan of the chest procedure, which showed an incidental finding of an e nlarged thyroid, and is now being referred for endocrine evaluation and management. PAST MEDICAL HISTORY: As mentioned above, history of hypertension and dyslipidemia and also ____ [employer] ____ previous admissions for exacerbations of the same. FAMILY HISTORY: No known thyroid endocrinopathy, but positive for hypertension and heart disease. SOCIAL HISTORY: The patient ____ nicotine dependence for over 50 years. At this time, ____. REVIEW OF SYSTEMS: Admits to generalized body weakness with easy fatigability and tiredness and ____ energy level. Also admits to dizziness and lightheadedness worse on the day of admission. No chest pains or palpitations but admits to progressive shortness of breath, especially when ____ with persi stent bronchorrhea and____ congestion ____. Her oral intake has been variable with occasional dyspep jonathan but denies any recent ____. PHYSICAL EXAMINATION: GENERAL: ____ average built female in no apparent distress. VITAL SIGNS: Blood pressure ____, pulse of 90 beats per minute and regular, temperature 98, respirat ions 20. Height is 5 ____ and weight is ____ pounds. HEENT: Normocephalic. Eyes anicteric with ____ conjunctivae. Fundoscopy ____ at this time. ____. NECK: Supple. Thyroid gland ____ which is firm and nontender with no overt ____ nodules palpable __ __ nor any cervical adenopathy noted. HEART: Hyperdynamic precordium. S1, S2 ____ regular. LUNGS: Scattered rhonchi. ABDOMEN: Flat, soft with positive bowel sounds. EXTREMITIES: ____. Pulses ____ bilaterally. LABORATORY DATA: The initial chemistry showed a BUN of ____. ____ studies are normal. ASSESSMENT: This is a 76-year-old female with overt acute exacerbation of chronic obstructive pulmon francisco disease with an incidental finding of a multinodular goiter by CAT scan and also confirmed clinic ally with nodular thyromegaly but no overt ____ nodules ____ at this time. She is clinically euthyro id at this time. PLAN OF MANAGEMENT: Discussed with the patient and staff. We will obtain a comprehensive thyroid ho rmone profile with a total T4 and free T4 and TSH and also we will include the thyroid peroxidase and the thyroglobulin antibody which will confirm and/or negate the presence of underlying thyroid ____. We will obtain serial chemistries and supplement accordingly as needed. We will also obtain a thyr oid ultrasound which will confirm the actual dimension of the gland and also the nature of the ____ _ ___ subclinical nodules and/or ____. We will follow and advise accordingly. Tami Marmolejo MD cc: [id number] TT: 01/06/2017 16:27:06 Confirmation # [id number] Dictation # [id number]
--- NOTE | 2017-01-07 08:41 | PN ---
DATE: 01/07/2017 I saw the patient resting in bed. She slept fairly well. She is comfortable, smiling, a little bit better overall. She has been seen by the surgery teacher, cotton inspector, the heart doctor and the pa stroenterologist for all her issues. There are tests pending. There is an ultrasound of the thyroid gland which is pending. I believe there will be a procedure tomorrow, an endoscopy to look at the e sophagus to see if there is any tumor in there. Also, look at the thyroid for a thyroid tumor also. She is currently on prednisone. The surgery teacher is decreasing the Solu-Medrol to 30 IV q. 12. Gua ifenesin, Pulmicort, Protonix, Phenergan, Lopressor, Levaquin p.o., DuoNeb and hydralazine. PHYSICAL EXAMINATION: VITAL SIGNS: Temp 98, 101 pulse, 128/82 blood pressure, 20 respiratory rate, 93% O2 sat and she is a smoker. HEAD: Atraumatic, normocephalic. THROAT: Moist. NECK: Supple. HEART: Regular rate. LUNGS: Decreased breath sounds, but clear. ABDOMEN: Soft, nontender. EXTREMITIES: No edema. She has a 136 sodium, potassium 3.5. I will add some potassium. BUN 17, creatinine 0.7, GFR is grea ter than 60. Sugars are high. She is on steroids. I will ensure she is on coverage and she is bein g seen by the cotton inspector. Calcium is 8.4, total bili is 0.5, AST is 22, ALT is 24, alkaline khoi sphatase 46, total protein is 7. White count is 10.3, hemoglobin 13.2, hematocrit 38.7, platelets ar e 232. Overall, she has a bunch of things going which worry me, the esophageal issue. It could be a cancer. Chronic obstructive pulmonary disease, the thyroid mass and she is a smoker. We will continue to a ddress each one of these complaints and problems. I will try and put her back together again. Fernando aidane with the IV Solu-Medrol as per pulmonology, do the endoscopy tomorrow, check the ultrasound of th e thyroid, continue with aggressive treatment and care. We will replace the potassium, watch her blo od sugars, physical therapy and we will check her labs tomorrow. I will talk to the daughter this joie cashing. Jose Posada DO cc: [id number] TT: 01/07/2017 08:40:38 Confirmation # [id number] Dictation # [id number]
[2017-01-07] MEDS: Potassium Chloride 20 mEq ER Tab PO SCH (09:10)
[2017-01-07] MEDS: Pantoprazole 40 mg EC Tab PO SCH (09:10)
[2017-01-07] MEDS: MethylPREDNISolone 40 mg Vial IVP SCH ×2 (09:11→21:33)
--- NOTE | 2017-01-07 09:42 | CP.PCM.PN ---
<EnmajillianronanOtto - Last Filed: 01/07/17 12:08> Subjective - Date & Time of Evaluation Date of Evaluation: 01/07/17 Time of Evaluation: 08:45 - Subjective Subjective: PGY4 GI Fellow Progress Note Patient seen and examined bedside this morning. The patient denies any complaints today, stating she is feeling much better than she did on admission. She admits to walking from bed to bathroom without issue. No problems overnight. 12 system ROS performed and negative except where stated. Objective - Vital Signs/Intake and Output Vital Signs (last 24 hours): Temp Pulse Resp BP Pulse Ox 98.4 F 98 H 20 128/74 99 01/07/17 06:00 01/07/17 09:10 01/07/17 06:00 01/07/17 09:10 01/07/17 06:00 Intake and Output: 01/07/17 01/07/17 06:59 18:59 Intake Total 940 Balance 940 - Medications Medications: Current Medications Albuterol/Ipratropium (Duoneb 3 Mg/0.5 Mg (3 Ml) Ud) 3 ml IH [id number] [facility] Last Admin: 01/07/17 08:06 Dose: 3 ml Albuterol/Ipratropium (Duoneb 3 Mg/0.5 Mg (3 Ml) Ud) 3 ml IH Q2H PRN PRN Reason: Shortness of Breath Budesonide (Pulmicort Respules) 0.5 mg IH [id number] [facility] Last Admin: 01/07/17 08:06 Dose: 0.5 mg Guaifenesin (Robitussin) 400 mg PO Q6 [facility] Last Admin: 01/07/17 05:46 Dose: 400 mg Hydralazine HCl (Apresoline) 25 mg PO TID [facility] Last Admin: 01/07/17 09:10 Dose: 25 mg Insulin Human Regular (Humulin R Med) 0 units SC ACHS [facility] PRN Reason: Protocol Levofloxacin (Levaquin) 250 mg PO Q24H [facility] Last Admin: 01/07/17 09:10 Dose: 250 mg Methylprednisolone (Solu-Medrol) 30 mg IVP Q12 [facility] Last Admin: 01/07/17 09:11 Dose: 30 mg Metoprolol Tartrate (Lopressor) 12.5 mg PO BID [facility] Last Admin: 01/07/17 09:11 Dose: 12.5 mg Pantoprazole Sodium (Protonix Ec Tab) 40 mg PO ACB [facility] Last Admin: 01/07/17 09:10 Dose: 40 mg Potassium Chloride (K-Dur 20 Meq Er Tab) 20 meq PO BRK [facility] Last Admin: 01/07/17 09:10 Dose: 20 meq Promethazine HCl (Phenergan Syrup) 6.25 mg PO Q8 [facility] Last Admin: 01/07/17 06:36 Dose: 6.25 mg - Labs Labs: 01/06/17 06:00 01/07/17 06:30 PT 11.4 Seconds (9.9-11.8) 01/04/17 14:18 INR 1.06 (0.93-1.08) 01/04/17 14:18 APTT 28.2 Seconds (23.7-30.8) 01/04/17 14:18 - Constitutional Appears: Non-toxic, No Acute Distress - Eye Exam Eye Exam: EOMI, PERRL - ENT Exam ENT Exam: Mucous Membranes Moist - Respiratory Exam Respiratory Exam: Decreased Breath Sounds, Rales. absent: Rhonchi, Wheezes - Cardiovascular Exam Cardiovascular Exam: RRR, +S1, +S2 - GI/Abdominal Exam GI & Abdominal Exam: Soft, Normal Bowel Sounds. absent: Distended, Firm, Guarding, Rigid, Tenderness, Organomegaly - Extremities Exam Extremities Exam: Normal Inspection. absent: Pedal Edema - Neurological Exam Neurological Exam: Alert, Awake, Oriented x3 - Psychiatric Exam Psychiatric exam: Normal Affect, Normal Mood - Skin Skin Exam: Dry, Warm Assessment and Plan - Assessment and Plan (Free Text) Assessment: Patient is a 76yo female with PMHx significant for COPD, HTN, dyslipidemia who presents with complaints of dyspnea, sore throat and ear pain. -Abnormal CT chest findings - thyroid enlargement, esophageal abnormality and mediastinal adenopathy -Acute COPD exacerbation, improved -Acute bronchitis, improved -URI with B/L otitis, resolving -HTN -Dyslipidemia Plan: -Patient to have thyroid U/S today -Tolerating diet without issue -Plan for EGD tomorrow for evaluation of esophageal abnormality noted on CT scan -NPO past midnight -Will defer EUS/FNB of mediastinal LNs for now -Pulmonology following, status improved per their note - tapering steroid therapy -Case discussed with primary care provider <Kunal Moody - Last Filed: 01/07/17 12:14> Objective - Vital Signs/Intake and Output Vital Signs (last 24 hours): Temp Pulse Resp BP Pulse Ox 98.4 F 98 H 20 128/74 99 01/07/17 06:00 01/07/17 09:10 01/07/17 06:00 01/07/17 09:10 01/07/17 06:00 Intake and Output: 01/07/17 01/07/17 06:59 18:59 Intake Total 940 Balance 940 - Medications Medications: Current Medications Albuterol/Ipratropium (Duoneb 3 Mg/0.5 Mg (3 Ml) Ud) 3 ml IH [id number] [facility] Last Admin: 01/07/17 08:06 Dose: 3 ml Albuterol/Ipratropium (Duoneb 3 Mg/0.5 Mg (3 Ml) Ud) 3 ml IH Q2H PRN PRN Reason: Shortness of Breath Budesonide (Pulmicort Respules) 0.5 mg IH [id number] [facility] Last Admin: 01/07/17 08:06 Dose: 0.5 mg Guaifenesin (Robitussin) 400 mg PO Q6 [facility] Last Admin: 01/07/17 12:08 Dose: 400 mg Hydralazine HCl (Apresoline) 25 mg PO TID [facility] Last Admin: 01/07/17 09:10 Dose: 25 mg Insulin Human Regular (Humulin R Med) 0 units SC ACHS [facility] PRN Reason: Protocol Last Admin: 01/07/17 12:08 Dose: 1 units Levofloxacin (Levaquin) 250 mg PO Q24H [facility] Last Admin: 01/07/17 09:10 Dose: 250 mg Methylprednisolone (Solu-Medrol) 30 mg IVP Q12 [facility] Last Admin: 01/07/17 09:11 Dose: 30 mg Metoprolol Tartrate (Lopressor) 12.5 mg PO BID [facility] Last Admin: 01/07/17 09:11 Dose: 12.5 mg Pantoprazole Sodium (Protonix Ec Tab) 40 mg PO ACB [facility] Last Admin: 01/07/17 09:10 Dose: 40 mg Potassium Chloride (K-Dur 20 Meq Er Tab) 20 meq PO BRK [facility] Last Admin: 01/07/17 09:10 Dose: 20 meq Promethazine HCl (Phenergan Syrup) 6.25 mg PO Q8 [facility] Last Admin: 01/07/17 06:36 Dose: 6.25 mg - Labs Labs: 01/06/17 06:00 01/07/17 06:30 PT 11.4 Seconds (9.9-11.8) 01/04/17 14:18 INR 1.06 (0.93-1.08) 01/04/17 14:18 APTT 28.2 Seconds (23.7-30.8) 01/04/17 14:18 Attending/Attestation - Attestation I have personally seen and examined this patient.: Yes I have fully participated in the care of the patient.: Yes I have reviewed all pertinent clinical information, including history, physical exam and plan: Yes Notes (Text): 01/07/17 12:13 76 year old female with h/o emphysema, smoking a/w SOB, found to have abnormal CT of esophagus. 1. Abnormal CT scan of the GI tract, esophagus 2. Mediastinal lymphadenopathy Plan: -asymptomatic -distal esophageal thickening along with mediastinal lymphadenopathy -recommend elective endoscopy tomorrow -NPO after MN -supportive care in the meantime -optimize respiratory status -lymph nodes are accessible by EUS for biopsy if needed
--- NOTE | 2017-01-07 10:27 | US ---
HISTORY: Multinodular Goiter TECHNIQUE: Grayscale imaging was performed. COMPARISON: None FINDINGS: RIGHT LOBE: Enlarged and measures 6.0 x 1.9 x 2.3 cm. There is diffuse heterogeneous echotexture and increased vascularity on color flow imaging. Nodules: There is a 2.2 x 0.9 x 2.0 cm isoechoic nodule in the upper pole laterally, 11 x 6 x 11 mm and 9 x 5 x 7 mm nodules in the upper pole. There is a dominant 2.6 x 1.9 x 1.7 cm isoechoic nodule in the lower pole. LEFT LOBE: Measures 5.9 x 2.3 x 2.3 cm. There is diffuse heterogeneous echotexture and increased vascularity on color flow imaging. Nodules: There is a 6 x 4 x 7 mm nodule in the upper pole, 82.1 x 1.3 x 1.8 cm complex nodule in the interpolar region and a dominant 3.2 x 1.9 x 2.4 cm isoechoic nodule in the lower pole. ISTHMUS: Measures 0.3 cm. There is diffuse heterogeneous echotexture and increased vascularity on color flow imaging. Nodules: There is a 10 x 5 x 7 mm nodule to the right and a dominant 2.5 x 1.5 x 2.0 cm nodule to the left with OTHER FINDINGS: None . IMPRESSION: Enlarged multinodular thyroid gland with a dominant 2.6 cm nodule in the right lower pole and a 3.2 cm nodule in the left lower pole.
[2017-01-07] MEDS: Insulin Reg-MEDIUM-Coverage SC SCH ×3 (12:08→21:39)
--- NOTE | 2017-01-07 15:17 | PN ---
DATE: 01/07/2017 ROOM: 362 This is a 76-year-old female with recent admission for acute exacerbation of COPD and was found to benito ve an incidental finding of a nodular goiter by CAT scan testing and is now being followed closely fo r metabolic management. Her latest chemistry showed a BUN of 17, sodium 136, potassium 3.5, chloride 105, CO2 of 23, glucose 200 and creatinine 0.7. Her hemoglobin A1c, however, is 7.6%, indicative of overt type 2 diabetes with recent hyperglycemic accelerations related to the intercurrent steroid th erapy as given. Her latest thyroid studies showed a T4 of 7.8 with a TSH of 0.13, again indicative o f the intercurrent usage of steroid therapy which can cause transient TSH suppression as noted thereo f. Her latest thyroid ultrasound undertaken today showed the presence of an enlarged thyroid with th e right lobe measuring 6.0 x 1.9 x 2.3 cm with small nodules within the gland and the dominant nodule in the right lobe measuring 2.6 cm as noted. The left lobe measures 5.9 x 2.3 and 2.3 cm with again small nodules on either side and a dominant nodule measuring 3.2 cm in the left lower pole of the th yroid. So, she has been ____ to have an enlarged nodular goiter with dominant nodules in both right and left lobes as noted. Moreover, she remains clinically euthyroid at this time as noted. As her I V steroids are tapered down, then we will repeat the thyroid studies to see if indeed she has the so- called subclinical hyperthyroidism with an enlarged multinodular goiter as noted thereof. We will ho ld off any kind of levothyroxine suppressive therapy at this time and observe serial thyroid studies and decide accordingly over the next few days with this admission. We will also observe her glycemic profile and start her on oral hypoglycemic drug therapy as indicated. We will follow. Tami Marmolejo MD cc: [id number] TT: 01/07/2017 15:16:55 Confirmation # [id number] Dictation # [id number] sn
--- NOTE | 2017-01-07 19:41 | CARD ---
APPROVED REPORT EXAM: Two-dimensional and M-mode echocardiogram with Doppler and color Doppler. INDICATION Chest Pain 2D DIMENSIONS Left Atrium (2D)3.3 (1.6-4.0cm)IVSd1.1 (0.7-1.1cm) LVDd3.5 (3.9-5.9cm)PWd1.1 (0.7-1.1cm) LVDs2.6 (2.5-4.0cm)FS (%) 24.8 % LVEF (%)50.0 (>50%) M-Mode DIMENSIONS Aortic Root2.70 (2.2-3.7cm)Aortic Cusp Exc.1.60 (1.5-2.0cm) Aortic Valve AoV Peak Rswiwlat787.0cm/Isidro Peak GR.9mmHg Mitral Valve E/A ratio0.0 TDI E/Lateral E'0.0E/Medial E'0.0 Tricuspid Valve TR Peak [id number]/sRAP [id number] Peak Gr.47mmHg [id number] LEFT VENTRICLE The left ventricle is normal size. There is normal left ventricular wall thickness. The left ventricular function is normal. The left ventricular ejection fraction is within the normal range. There is normal LV segmental wall motion. Transmitral Doppler flow pattern is Grade I-abnormal relaxation pattern. RIGHT VENTRICLE The right ventricle is normal size. There is normal right ventricular wall thickness. The right ventricular systolic function is normal. ATRIA The left atrium size is normal. The right atrium size is normal. AORTIC VALVE The aortic valve is mildly sclerotic. No aortic regurgitation is present. MITRAL VALVE The mitral valve is mildly thickened. TRICUSPID VALVE There is moderate tricuspid regurgitation. There is moderate pulmonary hypertension. GREAT VESSELS The aortic root is normal in size. PERICARDIAL EFFUSION There is a trace loculated anterior pericardial effusion. <Conclusion> The left ventricle is normal size. There is normal left ventricular wall thickness. The left ventricular function is normal. The left ventricular ejection fraction is within the normal range. There is normal LV segmental wall motion. Transmitral Doppler flow pattern is Grade I-abnormal relaxation pattern. There is moderate tricuspid regurgitation. There is moderate pulmonary hypertension.
[2017-01-08] MEDS: guaiFENesin 200 mg/10 ml Syrup UD PO SCH ×4 (00:05→17:34)
[2017-01-08] MEDS: Albuterol-Ipratrop 3 mg / 0.5 (3 ml) UD IH SCH ×4 (03:19→19:30)
[2017-01-08] MEDS: Promethazine 6.25 MG/5 ML CUP PO SCH ×3 (06:20→21:35)
[2017-01-08 07:30] LABS: HEMATOCRIT 40.9 % (36.0-48.0); MEAN CELL VOLUME 89.1 fL (80.0-105.0); MEAN CORPUSCULAR HEMOGLOBIN 30.9 pg (25.0-35.0); MEAN CORPUSCULAR HGB CONC 34.7 g/dl (31.0-37.0); MEAN PLATELET VOLUME 9.2 fl (7.0-11.0); RED CELL DISTRIBUTION WIDTH 13.8 % (11.5-14.5); WHITE BLOOD COUNT 12.5 10^3/ul (4.5-11.0)
--- NOTE | 2017-01-08 07:41 | PN ---
DATE: 01/08/2017 SUBJECTIVE: The patient appears very comfortable at rest. She is not short of breath. PHYSICAL EXAMINATION: VITAL SIGNS: Last temperature recorded 99.0, pulse this morning approximately 88, respiratory rate 18, blood pressure 121/99. Oxygen saturation on nasal cannula is 98%. HEENT: Normocephalic, atraumatic. No JVD. CARDIOVASCULAR: Systolic ejection murmur at the lower left sternal border. No S3 gallop. LUNGS: Improved breath sounds at the bases. Very minimal/less rhonchi. No wheezing. EXTREMITIES: Mild edema. No cyanosis. No clubbing. Calves are nontender to palpation. GASTROINTESTINAL: Abdomen is soft, nontender, nondistended. Bowel sounds are positive. SKIN: No acute rash. NEUROLOGIC: Limited at the present time. IMPRESSION: 1. Acute bronchitis. 2. Chronic obstructive pulmonary disease. 3. Abnormal CAT scan. 4. Hypertension. PLAN: The patient appears very comfortable this morning. She is not short of breath at rest. She does state to feeling much better overall. On physical exam, her bronchospasm continues to resolve. In addition, the alveolar- arterial gradient also continues to resolve. I will continue with the current nebulizer treatments and change to oral steroids this morning. The patient remains on antibiotic therapy. There are no temperatures noted. There is no leukocytosis. Pulmonary status of the patient is significantly improved -- compared to the initial presentation. Again, the patient is followed by another novelties sales representative -- Dr. Osborne -- in [facility]. I do advise proceeding with PET scanning -- as an outpatient -- to evaluate the mediastinal and hilar lymph nodes. These abnormalities may very well be chronic in nature. However, if the PET scan was positive, she would need additional evaluation. Dr. Posada is aware of the plan. I will speak with him again today. Shailesh Calles MD cc: [phone] TT: 01/08/2017 07:40:44 Confirmation # [id number] Dictation # [id number] en MTDD
[2017-01-08 07:46] LABS: ALB/GLOB RATIO 0.9 (1.1-1.8); ALKALINE PHOSPHATASE 55 U/L (38-133); ALT/SGPT 28 U/L (7-56); AST/SGOT 24 U/L (15-39); BILIRUBIN,TOTAL 0.4 mg/dL (0.2-1.3); BLOOD UREA NITROGEN 22 mg/dL (7-21); CALCIUM 8.3 mg/dL (8.4-10.5); CARBON DIOXIDE 24 mmol/L (21-33); CHLORIDE 103 mmol/L (95-110); GFR AFRICAN-AMERICAN > 60; GLUCOSE,RANDOM 151 mg/dL (70-110); POTASSIUM 4.5 mmol/L (3.6-5.0); SODIUM 133 mmol/L (132-148); TOTAL PROTEIN 7.1 g/dL (5.8-8.3)
--- NOTE | 2017-01-08 07:57 | PN ---
DATE: 01/08/2017 I saw the patient resting comfortably in her bed. She is feeling well. She is getting ready to go f or an endoscopy this morning to look at her esophageal issue. I am not sure if it is going to be can cer or not. I discussed this with the GI doctor. MEDICATIONS: She is on Apresoline, DuoNeb, insulin coverage, potassium, Levaquin, Lopressor, Phenerg an, prednisone 40, Protonix, Pulmicort and Robitussin. She has COPD, hypertension, high cholesterol, low potassium, esophageal mass, anxiety. PHYSICAL EXAMINATION: VITAL SIGNS: She has a 99 temp, 96 pulse, 121/79 blood pressure, 18 respiratory rate, 98% O2 sat on room air. HEENT: Head is atraumatic, normocephalic. Throat is moist. NECK: Supple. HEART: Regular rate. LUNGS: Decreased breath sounds, but clear. ABDOMEN: Soft. EXTREMITIES: No edema. LABORATORY DATA: She has a 12.5 white count. She is on steroids, 14.2 hemoglobin, 40.9 hematocrit w ith 220 platelets. Sodium 136, potassium 3.5 which we will replace the potassium. Last blood sugar was 205, hemoglobin A1c was 7.6, total bili is 0.5, AST is 22, ALT is 24, alk phos is 46, total prote in is 7. With a hemoglobin A1c of 7.6, I will start her on some diabetes medications. I will discuss that wit brian Marmolejo. She is already on insulin coverage and she might need to be on a stated regimen of Glucop van. We will continue with aggressive treatment and care as per gastroenterology and pulmonary. Dave bond is here for numerous issues, also acute bronchitis, chronic obstructive pulmonary disease and we wi ll see what happens with her endoscopy today. Jose Posada DO cc: [id number] TT: 01/08/2017 07:56:29 Confirmation # [id number] Dictation # [id number] tn
[2017-01-08] MEDS: Insulin Reg-MEDIUM-Coverage SC SCH ×4 (08:07→22:00)
[2017-01-08] MEDS: Budesonide 0.5 mg/2 ml Inhal Susp UD IH SCH ×2 (08:08→19:30)
[2017-01-08] MEDS: Pantoprazole 40 mg EC Tab PO SCH (08:26)
[2017-01-08] MEDS: Potassium Chloride 20 mEq ER Tab PO SCH (08:29)
[2017-01-08 08:49] LABS: INR 0.98 (0.93-1.08)
[2017-01-08] MEDS ORDERED: Propofol 10 mg/ml Inj (20 ML) ONE (11:03)
[2017-01-08] MEDS ORDERED: Lidocaine 1% Inj (20ml) ONE (11:04)
[2017-01-08] MEDS ORDERED: Lactated Ringer's 1,000 ML IV SCH (11:31)
--- NOTE | 2017-01-08 14:03 | PN ---
DATE: 01/08/2017 The patient's breathing is unlabored at rest. PHYSICAL EXAMINATION: VITAL SIGNS: Blood pressure is 142/85, the heart rate is in the 70s. The patient is afebrile. NECK: Negative JVD. LUNGS: Without rales. HEART: Reveals S1, S2. EXTREMITIES: Without edema. LABORATORY DATA: Hemoglobin is 14.2, the glucose is 151. Echocardiogram reveals good LV function wi th moderate pulmonary hypertension. IMPRESSION: 1. Exacerbation of chronic obstructive pulmonary disease. 2. Pulmonary hypertension. 3. Sinus tachycardia. 4. Hypercholesterolemia. 5. Hypertension. PLAN: Given these findings, the patient's cardiac status is stable. No further cardiac workup is ne cessary at this time. Owen Morgan MD cc: [id number] TT: 01/08/2017 14:03:24 Confirmation # [id number] Dictation # [id number] tn
--- NOTE | 2017-01-08 15:31 | PN ---
DATE: 01/08/2017 ROOM: 360 This is a 76-year-old female with recent acute exacerbation of COPD with an incidental finding of a m ultinodular goiter with no overt compressive symptoms and remains clinically and biochemically euthyr oid at this time. Her latest chemistries include a BUN of 22, sodium 133, potassium 4.5, chloride 10 3, CO2 of 24, glucose 151, and creatinine 0.6. Her glucose levels have ranged from 92-145 and 269 mg /dL. Her latest thyroid studies showed a T4 of 7.8 with a TSH of 0.13. She was previously on the IV steroid therapy and currently now on oral prednisone at 40 mg once daily as given. Her thyroid ultr asound showed the presence of a multinodular goiter with a mixture of small and dominant thyroid nodu les bilaterally as noted. We will hold off any kind of levothyroxine replacement therapy and obtain serial thyroid studies and determine the need accordingly. No indication at this time for any kind o f thyroid biopsies of the nodules as mentioned. We will obtain serial thyroid studies and serial thy roid ultrasound procedures and determine the need for the aforementioned as indicated. We will umseh lovelace. Tami Marmolejo MD cc: [id number] TT: 01/08/2017 15:31:14 Confirmation # [id number] Dictation # [id number] sn
[2017-01-09] MEDS: guaiFENesin 200 mg/10 ml Syrup UD PO SCH ×3 (00:29→13:54)
[2017-01-09] MEDS: Albuterol-Ipratrop 3 mg / 0.5 (3 ml) UD IH SCH ×3 (02:25→14:15)
[2017-01-09] MEDS: Promethazine 6.25 MG/5 ML CUP PO SCH ×2 (05:47→14:24)
--- NOTE | 2017-01-09 06:41 | CP.PCM.PN ---
Subjective - Date & Time of Evaluation Date of Evaluation: 01/09/17 Time of Evaluation: 06:41 - Subjective Subjective: Patient was seen at bedside because she complained of head ache.States that when she chews, she has pain in right TMJ and also headache. Has no other complaints.She is S/P endoscopy. Denies nausea, vomiting, dizziness, paraesthesia. Medical record was reviewed. This 76 years old woman was admitted with sorethroat, cough, congestion, sob, acute exacerbation of COPD. Has PMH of HTN,HLD, COPD, Appendectomy. Objective - Vital Signs/Intake and Output Vital Signs (last 24 hours): Temp Pulse Resp BP Pulse Ox 98.4 F 83 18 117/70 98 01/09/17 00:00 01/09/17 06:00 01/09/17 00:00 01/09/17 00:00 01/09/17 00:00 Intake and Output: 01/08/17 01/09/17 18:59 06:59 Intake Total 420 1180 Balance 420 1180 - Medications Medications: Current Medications Albuterol/Ipratropium (Duoneb 3 Mg/0.5 Mg (3 Ml) Ud) 3 ml IH [id number] [facility] Last Admin: 01/09/17 02:25 Dose: Not Given Albuterol/Ipratropium (Duoneb 3 Mg/0.5 Mg (3 Ml) Ud) 3 ml IH Q2H PRN PRN Reason: Shortness of Breath Budesonide (Pulmicort Respules) 0.5 mg IH [id number] [facility] Last Admin: 01/08/17 19:30 Dose: 0.5 mg Guaifenesin (Robitussin) 400 mg PO Q6 [facility] Last Admin: 01/09/17 00:29 Dose: Not Given Hydralazine HCl (Apresoline) 25 mg PO TID [facility] Last Admin: 01/08/17 17:34 Dose: 25 mg Lactated Ringer's (Lactated Ringer's) 1,000 mls @ 75 mls/hr IV .[id number] [facility] Insulin Human Regular (Humulin R Med) 0 units SC ACHS [facility] PRN Reason: Protocol Last Admin: 01/08/17 22:00 Dose: Not Given Levofloxacin (Levaquin) 250 mg PO Q24H [facility] Last Admin: 01/08/17 12:44 Dose: 250 mg Metoprolol Tartrate (Lopressor) 12.5 mg PO BID [facility] Last Admin: 01/08/17 17:34 Dose: 12.5 mg Pantoprazole Sodium (Protonix Ec Tab) 40 mg PO ACB [facility] Last Admin: 01/08/17 08:26 Dose: 40 mg Potassium Chloride (K-Dur 20 Meq Er Tab) 20 meq PO BRK [facility] Last Admin: 01/08/17 08:29 Dose: 20 meq Prednisone (Prednisone Tab) 40 mg PO DAILY [facility] Last Admin: 01/08/17 10:16 Dose: 40 mg Promethazine HCl (Phenergan Syrup) 6.25 mg PO Q8 [facility] Last Admin: 01/09/17 05:47 Dose: 6.25 mg - Labs Labs: 01/08/17 07:00 01/08/17 07:00 PT 10.6 Seconds (9.9-11.8) 01/08/17 08:30 INR 0.98 (0.93-1.08) 01/08/17 08:30 APTT 28.2 Seconds (23.7-30.8) 01/04/17 14:18 - Constitutional Appears: Well, No Acute Distress - Head Exam Head Exam: ATRAUMATIC, NORMAL INSPECTION, NORMOCEPHALIC - Eye Exam Eye Exam: Normal appearance - ENT Exam ENT Exam: Normal External Ear Exam - Neck Exam Neck Exam: Normal Inspection - Respiratory Exam Respiratory Exam: NORMAL BREATHING PATTERN - Cardiovascular Exam Cardiovascular Exam: absent: JVD - GI/Abdominal Exam GI & Abdominal Exam: absent: Distended - Rectal Exam Rectal Exam: Deferred - Extremities Exam Extremities Exam: Normal Inspection - Back Exam Back Exam: NORMAL INSPECTION - Neurological Exam Neurological Exam: Alert, Oriented x3 - Psychiatric Exam Psychiatric exam: Normal Affect, Normal Mood - Skin Skin Exam: Normal Color Assessment and Plan - Assessment and Plan (Free Text) Assessment: A/P:Headache. COPD exacerbation. HTN. HLD. Motrin 400 mg PO X 1. Continue present management.
[2017-01-09 07:45] LABS: BLOOD UREA NITROGEN 23 mg/dL (7-21); CALCIUM 8.4 mg/dL (8.4-10.5); CARBON DIOXIDE 25 mmol/L (21-33); CHLORIDE 101 mmol/L (98-107); GFR AFRICAN-AMERICAN > 60; GLUCOSE,RANDOM 103 mg/dL (70-110); POTASSIUM 4.1 mmol/L (3.6-5.0); SODIUM 135 mmol/L (132-148); TOTAL PROTEIN 7.7 g/dL (5.8-8.3)
[2017-01-09 07:46] LABS: ALB/GLOB RATIO 0.8 (1.1-1.8); ALKALINE PHOSPHATASE 54 U/L (38-133); ALT/SGPT 24 U/L (7-56); AST/SGOT 26 U/L (15-39); BILIRUBIN,TOTAL 0.7 mg/dL (0.2-1.3)
[2017-01-09 07:50] LABS: FREE T4 1.22 ng/dL (0.78-2.19); T4 8.3 ug/dL (5.5-11.0)
[2017-01-09] MEDS: Insulin Reg-MEDIUM-Coverage SC SCH ×2 (07:53→13:54)
[2017-01-09] MEDS: Budesonide 0.5 mg/2 ml Inhal Susp UD IH SCH (07:56)
[2017-01-09 08:03] LABS: THYROID STIMULATING HORMONE 1.18 mIU/mL (0.46-4.68)
[2017-01-09] MEDS: Potassium Chloride 20 mEq ER Tab PO SCH (08:40)
[2017-01-09] MEDS: Pantoprazole 40 mg EC Tab PO SCH (08:41)
--- NOTE | 2017-01-09 08:55 | PN ---
DATE: 01/09/2017 SUBJECTIVE: The patient appears very comfortable at rest. She is not short of breath. PHYSICAL EXAMINATION: VITAL SIGNS: Temperature is 98.4, pulse 83, respirations 18, blood pressure 117 /70. Oxygen saturation on nasal cannula is 98%. Oxygen saturation on room air is 95%. HEENT: Normocephalic, atraumatic. No JVD. CARDIOVASCULAR: Systolic ejection murmur at the lower left sternal border. No S3 gallop. LUNGS: Very minimal/less rhonchi. No wheezing. EXTREMITIES: Mild edema. No cyanosis. No clubbing. Calves are nontender to palpation. GASTROINTESTINAL: Abdomen is soft, nontender, nondistended. Bowel sounds are positive. SKIN: No acute rash. NEUROLOGIC: Limited at the present time. IMPRESSION: 1. Acute bronchitis. 2. Chronic obstructive pulmonary disease. 3. Abnormal CAT scan--chest. 4. Hypertension. PLAN: The patient appears very comfortable this morning. She is not short of breath at rest. She states she is feeling much better overall. On physical exam, her bronchospasm continues to resolve. In addition, the alveolar- arterial gradient also continues to resolve. I will continue with the current nebulizer treatments and oral steroids (changed yesterday) for now. The patient is for discharge in the near future. Again, I do advise PET scanning - - as an outpatient -- to evaluate the lymphadenopathy. I went over this plan with the patient at length again this morning. The patient is followed by another supervisor [employer] -- Dr. Osborne -- in [place]. I have also reviewed the planned with Dr. Posada -- as recent as yesterday. The patient is significantly improved -- compared to the initial presentation. I will discuss the above with Dr. Posada again this morning. Shailesh Calles MD cc: [phone] TT: 01/09/2017 08:55:36 Confirmation # [id number] Dictation # [id number] en MTDD
--- NOTE | 2017-01-09 09:09 | CP.PCM.PN ---
<Otto Madrid - Last Filed: 01/09/17 15:29> Subjective - Date & Time of Evaluation Date of Evaluation: 01/09/17 Time of Evaluation: 08:20 - Subjective Subjective: PGY4 GI Fellow Progress Note Patient seen and examined bedside this morning. The patient denies any complaints at this time. She is seen at bedside tolerating breakfast without issue. No SOB, sore throat, nausea, vomiting, fever, chills or events overnight. 12 system ROS performed and negative except where stated. Objective - Vital Signs/Intake and Output Vital Signs (last 24 hours): Temp Pulse Resp BP Pulse Ox 98.4 F 83 18 117/70 98 01/09/17 00:00 01/09/17 06:00 01/09/17 00:00 01/09/17 00:00 01/09/17 00:00 Intake and Output: 01/09/17 01/09/17 06:59 18:59 Intake Total 1180 240 Balance 1180 240 - Medications Medications: Current Medications Albuterol/Ipratropium (Duoneb 3 Mg/0.5 Mg (3 Ml) Ud) 3 ml IH [id number] [facility] Last Admin: 01/09/17 07:57 Dose: 3 ml Albuterol/Ipratropium (Duoneb 3 Mg/0.5 Mg (3 Ml) Ud) 3 ml IH Q2H PRN PRN Reason: Shortness of Breath Budesonide (Pulmicort Respules) 0.5 mg IH [id number] [facility] Last Admin: 01/09/17 07:56 Dose: 0.5 mg Guaifenesin (Robitussin) 400 mg PO Q6 [facility] Last Admin: 01/09/17 07:12 Dose: Not Given Hydralazine HCl (Apresoline) 25 mg PO TID [facility] Last Admin: 01/08/17 17:34 Dose: 25 mg Insulin Human Regular (Humulin R Med) 0 units SC ACHS [facility] PRN Reason: Protocol Last Admin: 01/09/17 07:53 Dose: Not Given Levofloxacin (Levaquin) 250 mg PO Q24H [facility] Last Admin: 01/08/17 12:44 Dose: 250 mg Metoprolol Tartrate (Lopressor) 12.5 mg PO BID [facility] Last Admin: 01/08/17 17:34 Dose: 12.5 mg Pantoprazole Sodium (Protonix Ec Tab) 40 mg PO ACB [facility] Last Admin: 01/09/17 08:41 Dose: 40 mg Potassium Chloride (K-Dur 20 Meq Er Tab) 20 meq PO BRK [facility] Last Admin: 01/09/17 08:40 Dose: 20 meq Prednisone (Prednisone Tab) 40 mg PO DAILY [facility] Last Admin: 01/08/17 10:16 Dose: 40 mg Promethazine HCl (Phenergan Syrup) 6.25 mg PO Q8 [facility] Last Admin: 01/09/17 05:47 Dose: 6.25 mg - Labs Labs: 01/08/17 07:00 01/09/17 05:00 PT 10.6 Seconds (9.9-11.8) 01/08/17 08:30 INR 0.98 (0.93-1.08) 01/08/17 08:30 APTT 28.2 Seconds (23.7-30.8) 01/04/17 14:18 - Constitutional Appears: Non-toxic, No Acute Distress - Eye Exam Eye Exam: EOMI, PERRL - ENT Exam ENT Exam: Mucous Membranes Moist - Respiratory Exam Respiratory Exam: Clear to Ausculation Bilateral. absent: Rales, Rhonchi, Wheezes - Cardiovascular Exam Cardiovascular Exam: RRR, +S1, +S2 - GI/Abdominal Exam GI & Abdominal Exam: Soft, Normal Bowel Sounds. absent: Distended, Firm, Guarding, Rigid, Tenderness, Organomegaly - Extremities Exam Extremities Exam: Normal Inspection. absent: Pedal Edema - Neurological Exam Neurological Exam: Alert, Awake, Oriented x3 - Psychiatric Exam Psychiatric exam: Normal Affect, Normal Mood - Skin Skin Exam: Dry, Warm Assessment and Plan - Assessment and Plan (Free Text) Assessment: Patient is a 76yo female with PMHx significant for COPD, HTN, dyslipidemia who presents with complaints of dyspnea, sore throat and ear pain. -Acute COPD exacerbation, improved -Acute bronchitis, improved -URI with B/L otitis, resolving -Esophageal plaques, distal esophageal nodule vs thickened gastric fold - noted on EGD -HTN -Dyslipidemia Plan: -S/P EGD; noted white plaques on prox/mid esophagus concerning for candidiasis; nodule vs thickened gastric fold at GEJ, gastritis - biopsies taken/path pending -Patient improved overall -Diet as tolerated, no evidence of dysphagia -Clear for D/C from GI standpoint with close follow up in 1-2 weeks; will contact patient once pathology results finalize -Pt to have PET scan as outpt <Kunal Moody - Last Filed: 01/09/17 16:34> Objective - Vital Signs/Intake and Output Vital Signs (last 24 hours): Temp Pulse Resp BP Pulse Ox 97.6 F 74 20 151/92 H 97 01/09/17 06:00 01/09/17 09:06 01/09/17 06:00 01/09/17 09:06 01/09/17 06:00 Intake and Output: 01/09/17 01/09/17 06:59 18:59 Intake Total 1180 940 Balance 1180 940 - Medications Medications: Current Medications Albuterol/Ipratropium (Duoneb 3 Mg/0.5 Mg (3 Ml) Ud) 3 ml IH [id number] [facility] Last Admin: 01/09/17 14:15 Dose: 3 ml Albuterol/Ipratropium (Duoneb 3 Mg/0.5 Mg (3 Ml) Ud) 3 ml IH Q2H PRN PRN Reason: Shortness of Breath Budesonide (Pulmicort Respules) 0.5 mg IH [id number] [facility] Last Admin: 01/09/17 07:56 Dose: 0.5 mg Guaifenesin (Robitussin) 400 mg PO Q6 [facility] Last Admin: 01/09/17 13:54 Dose: Not Given Hydralazine HCl (Apresoline) 25 mg PO TID [facility] Last Admin: 01/09/17 14:24 Dose: 25 mg Insulin Human Regular (Humulin R Med) 0 units SC ACHS [facility] PRN Reason: Protocol Last Admin: 01/09/17 13:54 Dose: Not Given Levofloxacin (Levaquin) 250 mg PO Q24H [facility] Last Admin: 01/09/17 09:06 Dose: 250 mg Metoprolol Tartrate (Lopressor) 12.5 mg PO BID [facility] Last Admin: 01/09/17 09:06 Dose: 12.5 mg Pantoprazole Sodium (Protonix Ec Tab) 40 mg PO ACB [facility] Last Admin: 01/09/17 08:41 Dose: 40 mg Potassium Chloride (K-Dur 20 Meq Er Tab) 20 meq PO BRK [facility] Last Admin: 01/09/17 08:40 Dose: 20 meq Prednisone (Prednisone Tab) 40 mg PO DAILY [facility] Last Admin: 01/09/17 09:07 Dose: 40 mg Promethazine HCl (Phenergan Syrup) 6.25 mg PO Q8 [facility] Last Admin: 01/09/17 14:24 Dose: 6.25 mg - Labs Labs: 01/08/17 07:00 01/09/17 05:00 PT 10.6 Seconds (9.9-11.8) 01/08/17 08:30 INR 0.98 (0.93-1.08) 01/08/17 08:30 APTT 28.2 Seconds (23.7-30.8) 01/04/17 14:18 Attending/Attestation - Attestation I have personally seen and examined this patient.: Yes I have fully participated in the care of the patient.: Yes I have reviewed all pertinent clinical information, including history, physical exam and plan: Yes Notes (Text): 01/09/17 16:32 76 year old female with h/o emphysema, smoking a/w SOB, found to have abnormal CT of esophagus. 1. Candidal esophagitis Plan: -on therapy with diflucan -ppi -awaiting path -outpatient pet for lymphadenopathy follow up outpatient
--- NOTE | 2017-01-09 10:37 | PN ---
DATE: 01/09/2017 SUBJECTIVE: The patient's breathing is much improved. PHYSICAL EXAMINATION: VITAL SIGNS: Blood pressure 151/92, the heart rate is in the 70s. NECK: Negative JVD. LUNGS: Without rales. HEART: Reveals S1, S2. EXTREMITIES: Without edema. LABORATORIES: BUN and creatinine are unremarkable. Thyroid function testing is unremarkable. IMPRESSION: 1. Exacerbation of chronic obstructive pulmonary disease. 2. Pulmonary hypertension. 3. Hypercholesterolemia. 4. Hypertension. PLAN: Given these findings, the patient is scheduled for discharge today. I have discussed with the patient in detail about her need to stop smoking. Owen Morgan MD cc: [id number] TT: 01/09/2017 10:36:46 Confirmation # [id number] Dictation # [id number] shreya
--- NOTE | 2017-01-09 13:55 | DS ---
She is comfortable in bed. She is definitely improved. She had the endoscopy yesterday, which showed gastritis. I discussed this with the binder stripper hand, who wants her to be discharged on Advair, prednisone, decreasing amount of meds and Levaquin. She needs a PET scan on the outpatient. She has to follow up with her binder stripper hand and her assistant drafter and her primary care doctor. She understands this. She will get her medications, which are Apresoline, DuoNeb, potassium, Levaquin , Lopressor, Motrin, Phenergan syrup, prednisone, Protonix, Pulmicort and Robitussin. PHYSICAL EXAMINATION: VITAL SIGNS: She has 98.4 temp, 83 pulse, 117/70 blood pressure, 18 respiratory rate, 98% O2 sat on room air. HEENT: Head is atraumatic, normocephalic. HEART: Regular rate. LUNGS: Clear to auscultation. Have decreased breath sounds, but clearing. ABDOMEN: Soft. EXTREMITIES: No edema. She has a 12.5 white count, she is on steroids, 14.2 hemoglobin and platelets. She has a 135 sodium, potassium 4.1, BUN 23, creatinine 0.7, GFR is greater than 60, sugar is 103, AST is 26, ALT is 24, alkaline phosphatase and total protein 7.7. She did well here. She improved. She needs to have an outpatient PET scan. She has to follow up with her primary care doctor, the binder stripper hand and the assistant drafter in the next 2 weeks, primary care in the next week. She was here for chronic obstructive pulmonary disease, acute bronchitis, hypertension, high cholesterol, diabetes, multinodular goiter and had gastritis. Jose Posada DO cc: [id number] TT: 01/09/2017 11:10:18 en MTDD
--- NOTE | 2017-01-09 15:27 | PN ---
DATE: 01/09/2017 ROOM: 360. This is a 76-year-old female with recent acute exacerbation of COPD and given IV steroid therapy and is now improving clinically and hemodynamically as noted thereof. She is currently on oral prednison e as given. Her CAT scan of the chest showed an incidental finding of a multinodular goiter confirme d by thyroid ultrasound testing as noted. She has remained clinically and biochemically euthyroid at this time. Her ultrasound showed the presence of bilateral nodules, a few of which were slightly do minant in size, and also has bilaterally enlarged lobes of the thyroid consistent with a multinodular goiter. No compressive neck symptoms have been noted at this time. She remains biochemically euthy roid, but with an initial transient TSH suppression noted from the steroid therapy as given, and now it has improved accordingly as noted, there is no need for the initiation of levothyroxine replacemen t therapy and would recommend serial thyroid testing as followup as an outpatient. Her latest chemistry showed a BUN of 23, sodium 135, potassium 4.1, chloride 101, CO2 25, glucose 103 , and creatinine 0.7. Her TSH now is 1.18 with a T4 of 8.3 and free T4 of 1.22. So at this time, would recommend just serial thyroid testing in the next 2-3 months with no initiatio n of levothyroxine suppressive therapy. Will obtain serial chemistries and supplement accordingly as needed. Will follow. Tami Marmolejo MD cc: [id number] TT: 01/09/2017 15:26:39 Confirmation # [id number] Dictation # [id number] mn
[2017-01-09 17:33] VITALS: BP 143/91; PULSE 97; RESP 18; TEMP 97.7; O2SAT 95
== END 2017-01-09 17:00 | disposition home or self-care (01) | DRG 191 ==
LOC: ED 12:52 → ERH 17:47 → OBSVTOIN 01-05 09:00 → ERH 01-05 13:19 → 3RNO 01-05 17:14 → OBSVTOIN 01-06 07:32 → INTOOBSV 01-06 07:32
PROVIDERS: ADMIT Family Medicine; ATTEND Family Medicine
PROC: 3E0F7GC Introduction of Other Therapeutic Substance into Respiratory Tract, Via Natural or Artificial Opening (ICD-10-PCS; 2017-01-06)
PROC: 0DB58ZX Excision of Esophagus, Via Natural or Artificial Opening Endoscopic, Diagnostic (ICD-10-PCS; principal; 2017-01-08 11:00)
PROC: 0DB68ZX Excision of Stomach, Via Natural or Artificial Opening Endoscopic, Diagnostic (ICD-10-PCS; 2017-01-08 11:00)
DX: J44.0 Chronic obstructive pulmonary disease with (acute) lower respiratory infection (principal); J44.1 Chronic obstructive pulmonary disease with (acute) exacerbation; J20.9 Acute bronchitis, unspecified; B37.81 Candidal esophagitis; I27.2 Other secondary pulmonary hypertension; E11.9 Type 2 diabetes mellitus without complications; I10 Essential (primary) hypertension; E04.2 Nontoxic multinodular goiter; R59.0 Localized enlarged lymph nodes; E78.00 Pure hypercholesterolemia, unspecified; E87.6 Hypokalemia; J02.9 Acute pharyngitis, unspecified; F17.210 Nicotine dependence, cigarettes, uncomplicated; E78.5 Hyperlipidemia, unspecified; H66.93 Otitis media, unspecified, bilateral; R00.0 Tachycardia, unspecified; K29.70 Gastritis, unspecified, without bleeding; Z90.49 Acquired absence of other specified parts of digestive tract; Z82.49 Family history of ischemic heart disease and other diseases of the circulatory system

== ENCOUNTER 2018-07-02 10:57 | Day surgery (SDC) | payer MEDICARE, MEDICAID ==
[2018-06-25 14:45] VITALS: BMI 19.9
[2018-07-02] MEDS ORDERED: Lidocaine 2% Inj (20ml) ONE (11:20)
[2018-07-02] MEDS ORDERED: Heparin 2,000 ML IV ONE (11:21)
[2018-07-02] MEDS ORDERED: Nitroglycerin 50mg in D5W 50 MG/250 ML BOTTLE IV ONE (11:21)
[2018-07-02] MEDS ORDERED: Iodixanol 320 MG/ML 100 ML BOTTLE IV ONE (11:21)
[2018-07-02] MEDS ORDERED: Iodixanol 320 MG/ML 200 ML BOTTLE IV ONE (11:21)
[2018-07-02 11:35] LABS: BASO # 0.07 K/mm3 (0.0-2.0); BASO % 0.7 % (0.0-3.0); EOS # 0.4 (0.0-0.7); GRAN # 3.81 (1.4-6.5); GRAN % 38.4 % (50.0-68.0); HEMOGLOBIN 14.8 g/dL (12.0-16.0); LYMPH % 50.8 % (22.0-35.0); MEAN CELL VOLUME 90.2 fl (80.0-105.0); MEAN CORPUSCULAR HEMOGLOBIN 31.4 pg (25.0-35.0); MEAN CORPUSCULAR HGB CONC 34.8 g/dl (31.0-37.0); MEAN PLATELET VOLUME 9.3 fl (7.0-11.0); MONO # 0.6 (0.1-0.6); MONO % 6.1 % (1.0-6.0); RBC 4.71 10^6/uL (3.5-6.1); RED CELL DISTRIBUTION WIDTH 12.6 % (11.5-14.5); WHITE BLOOD COUNT 9.9 10^3/ul (4.5-11.0)
[2018-07-02 11:45] LABS: BLOOD UREA NITROGEN 12 mg/dL (7-21); CALCIUM 9.7 mg/dL (8.4-10.5); GFR NON-AFRICAN AMERICAN > 60
[2018-07-02 11:46] LABS: PARTIAL THROMBOPLASTIN TIME 29.6 Seconds (25.1-36.5); PROTHROMBIN TIME 11.5 SECONDS (9.4-12.5)
[2018-07-02] MEDS ORDERED: Potassium Chloride 20 mEq ER Tab PO ONE (13:05)
[2018-07-02] MEDS ORDERED: Midazolam 2 MG/2 ML VIAL ONE ×2 (13:08→13:42)
[2018-07-02] MEDS ORDERED: Oxycodone/Acetaminophen 5/325 mg Tab PO PRN (14:41)
[2018-07-02] MEDS ORDERED: Sodium Chloride 0.45% 1,000 ML IV SCH (14:45)
[2018-07-02 15:32] VITALS: RESP 18; TEMP 97.3
--- NOTE | 2018-07-02 16:39 | VASCULAR ---
PROCEDURE: 1. Abdominal aortogram and bilateral lower extremity runoff with left selective views. 2. Left external iliac artery angioplasty and stent placement HISTORY: Peripheral vascular disease. Chronic left external iliac artery occlusion. Bilateral claudication, greater on the left than the right PHYSICIAN(S): Owen Serrano M.D. TECHNIQUE: The relative risks and indications of the procedure were explained to the patient and her daughter and consent obtained. The patient was hydrated prior to the procedure and the appropriate labs drawn. The patient was placed supine on the arteriogram table and the right groin prepped and draped in the usual sterile fashion. Conscious sedation and monitoring were provided throughout the procedure by a nurse. Via a right common femoral artery approach, a 5 Malian sheath was placed in the right groin. Through the sheath and over a guidewire, a 5 Malian flush catheter was placed in the abdominal aorta at the level of the renal arteries and a PA DSA abdominal aortogram performed. The catheter was pulled down to the aortic bifurcation and bilateral oblique DSA pelvic arteriograms performed. Overlapping bilateral lower extremity DSA arteriograms were obtained from the inguinal ligaments to the trifurcation. A 0.035 angled Glidewire was advanced over the bifurcation and placed in the left internal iliac artery. A 6 Malian 45 cm destination sheath was placed in the left common iliac artery. The chronic occlusion of the left external iliac artery was crossed rather easily with a 5 Malian catheter and 0.035 angled Glidewire. Exchange is made for a 0.035 ede and wire in the left SFA. The left external iliac artery occlusion was dilated with a 7 mm balloon. Next a 7 mm x 100 mm self expanding stent was placed in the left external iliac artery. It was dilated again with a 7 mm balloon. Completion angiograms were obtained. The sheath was removed hemostasis obtained with a Perclose device. The patient tolerated the procedure well FINDINGS: There are single renal arteries bilaterally which are widely patent and normal in appearance. The nephrograms are symmetric in appearance. The infrarenal abdominal aorta is smoothly calcified and patent without radiographically significant stenosis.. The aortic bifurcation is widely patent. There is a chronic occlusion of the left external iliac artery. The common iliac arteries and right external iliac artery are calcified but patent Right lower extremity: The right common femoral artery is patent. The right profunda femoral artery is hypertrophied. The right superficial femoral artery is occluded at its origin and reconstitutes in the adductor canal.. The right popliteal artery and trifurcation are patent. Left lower extremity: Left common femoral artery is patent. The left profunda femoral artery is patent. The left superficial femoral artery is patent and continuous without a radiographically significant stenosis. The left popliteal artery and trifurcation are patent.The 3 right tibial vessels are patent and continuous to the foot. IMPRESSION: 1.Successful left external iliac artery recanalization with angioplasty and stent placement 2. Long segment right SFA occlusion.
[2018-07-02 16:47] VITALS: O2SAT 93
[2018-07-02 16:49] VITALS: PULSE 62
[2018-07-02 18:32] VITALS: BP 145/72
== END 2018-07-02 19:00 | disposition home or self-care (01) ==
LOC: SDSVAS 10:57
PROVIDERS: ATTEND Radiology Vascular & Interventional Radiology
DX: I70.201 Unspecified atherosclerosis of native arteries of extremities, right leg (principal); I10 Essential (primary) hypertension; F17.200 Nicotine dependence, unspecified, uncomplicated; J44.9 Chronic obstructive pulmonary disease, unspecified; E78.00 Pure hypercholesterolemia, unspecified; Z90.49 Acquired absence of other specified parts of digestive tract; Z88.6 Allergy status to analgesic agent; Z88.0 Allergy status to penicillin; Z88.8 Allergy status to other drugs, medicaments and biological substances
CPT/HCPCS: 36415; 37221; 75625; 75716; 80048; 85025; 85610; 85730; 99152; 99153; C1725; C1760; C1769 ×4; C1876; C1887 ×3; C1894; J1644; J2250; J2405; J3010; J7030; Q9966; Q9967